=== PATIENT | male | born 1980 | race Caucasian/White ===

== ENCOUNTER 2018-04-18 14:47 | Inpatient (IN) | payer OTHER ==
[~2018-04-18] VITALS: Ht 177.8 cm; Wt 72.1 kg
[2018-04-18] VITALS (11 sets, daily range): BP systolic 93–150; BP diastolic 58–92
[2018-04-18 15:09] LABS: BASO # 0.1 x10^3/uL (0.0-0.2); BASO % 1 % (0-3); EOS % 0 % (0-3); HEMATOCRIT 41.2 % (39.0-53.0); HEMOGLOBIN 14.5 g/dL (13.0-17.5); LYMPH # 2.1 x10^3/uL (1.0-4.8); LYMPH % 24 % (24-48); MEAN CORPUSCULAR HEMOGLOBIN 32 pg (25-35); MEAN CORPUSCULAR HGB CONC 35 g/dL (31-37); MEAN CORPUSCULAR VOLUME 90 fL (79-100); MONO # 0.5 x10^3/uL (0.0-1.1); MONO % 5 % (0-9); NEUT # 6.2 x10^3uL (1.8-7.7); NEUT % 70 % (31-73); PLATELET COUNT 159 x10^3/uL (140-400); RED BLOOD COUNT 4.56 x10^6/uL (4.30-5.70); RED CELL DISTRIBUTION WIDTH 13.2 % (11.5-14.5); WHITE BLOOD COUNT 8.9 x10^3/uL (4.0-11.0)
[2018-04-18 15:17] LABS: PROTHROMBIN TIME PATIENT 14.2 SEC (11.7-14.0)
[2018-04-18 15:29] LABS: ANION GAP 7 (6-14); BLOOD UREA NITROGEN 10 mg/dL (8-26); CALCIUM 8.6 mg/dL (8.5-10.1); CARBAM 6.1 mcg/mL (4.0-12.0); CARBON DIOXIDE 29 mmol/L (21-32); CHLORIDE 106 mmol/L (98-107); CREATININE 0.9 mg/dL (0.7-1.3); GFR 94.4; GLUCOSE 119 mg/dL (70-99); PHENY 0.5 mcg/mL (10.0-20.0); SODIUM 142 mmol/L (136-145)
--- NOTE | 2018-04-18 15:43 | RAD ---
PQRS Compliance Statement: One or more of the following individualized dose reduction techniques were utilized for this examination: 1. Automated exposure control 2. Adjustment of the mA and/or kV according to patient size 3. Use of iterative reconstruction technique CT HEAD AND CERVICAL SPINE WITHOUT CONTRAST History: FALL, AMS Comparison: None. Procedure: Axial images are obtained of the head from the skull base through the vertex without IV contrast. Noncontrast helical CT of the cervical spine was performed. Axial, sagittal, and coronal reconstructions were obtained. Findings: Small right temporal lobe subdural hematoma measures 5 mm in diameter. There is left cerebral hemisphere subarachnoid hemorrhage. Hemorrhage is seen along the sylvian fissure, images 12 and 13. Scattered subarachnoid hemorrhage extends to near the convexity. There is left cerebral hemisphere sulcal effacement. There is no loss of lal-white matter differentiation. Bone windows demonstrate no significant calvarial abnormality. The visualized paranasal sinuses are clear. Mastoid air cells are well aerated. There is no evidence of acute fracture or acute malalignment of the cervical spine. No perched or jumped facets. There is mild degenerative endplate spurring. No significant disc space narrowing. Craniovertebral junction is maintained. No significant narrowing of the central canal. Visualized soft tissues of the neck demonstrate no significant abnormalities. The visualized lung apices are clear. IMPRESSION: 1. Acute left cerebral hemisphere subarachnoid hemorrhage. 2. Small right temporal lobe acute subdural hematoma. 3. No acute fracture of the cervical spine. Findings discussed with CARMINA BASS in the ED at 04/18/2018 3:39 PM. FOR INTERNAL CODING PURPOSES Critical result: RESULT CODE: (C) Electronically signed by: Mehdi Marie MD (04/18/2018 3:40 PM) [id number]
[2018-04-18 15:58] LABS: BILIRUBIN,URINE NEGATIVE (NEG); CLARITY,URINE CLEAR; COLOR,URINE YELLOW; NITRITE,URINE NEGATIVE (NEG); PH,URINE 8.5; PROTEIN,URINE NEGATIVE (NEG-TRACE); UROBILINOGEN,URINE 0.2 mg/dL (0.2 mg/dL)
[2018-04-18 16:05] LABS: BARBITURATES NEG (NEG); BENZODIAZEPINES NEG (NEG); CANNABINOIDS NEG (NEG); COCAINE NEG (NEG); METHADONE NEG (NEG); OPIATES NEG (NEG); PHENCYCLIDINE NEG (NEG)
[2018-04-18 16:15] LABS: BACTERIA,URINE 0 /HPF (0-FEW); RBC,URINE 0 /HPF (0-2); WBC,URINE 0 /HPF (0-4)
[2018-04-18] MEDS ORDERED: levETIRAcetam 1,000 MG in IV DEXTROSE 5% 100ML 100 ML IV ONE (16:15)
[2018-04-18] MEDS ORDERED: IV RINGERS,LACTATED 1000ML 1,000 ML IV ONE (16:15)
[2018-04-18] MEDS ORDERED: ONDANSETRON PF 4 MG/2 ML VIAL. IM ONE (16:15)
[2018-04-18] MEDS ORDERED: ONDANSETRON PF 4 MG/2 ML VIAL. IV PRN (16:15)
[2018-04-18 16:16] LABS: AMPHETAMINE/METHAMPHETAMINE NEG (NEG)
--- NOTE | 2018-04-18 16:22 | PDOC1 ---
History and Physical Date of Admission Date of Admission DATE: 04/18/18 TIME: 16:22 Identification/Chief Complaint Chief Complaint SEEN IN er inmate at [facility]. was in the courtyard portion of that facility when he was witnessed to have what is described to be a mechanical fall striking his head on a wall. guards some possible seizure activity immediately after the incident. EMS was called because the patient remained confused and unable to communicate at baseline.,does have a prior history of seizures Past Medical History Past Medical History Past Medical History: Seizure, Unknown Past Surgical History: Other Additional Past Surgical Histo: UNKNOWN SURGICAL HISTORY DUE TO PTS MENTAL STATUS Alcohol Use: None Drug Use: None KNOWN Social History Narrative: UNKNOWN ALCOHOL AND DRUG USE UNKNOWN FHX Heme/Onc: No pertinent hx Dermatology: No pertinent hx Family History Family History: Family History Unknown Social History Smoke: No ALCOHOL: none Drugs: None Current Medications Current Medications Current Medications Ringer's Solution 1,000 ml @ 75 mls/hr 1X ONCE IV ; Start 04/18/18 at 16:15; Stop 04/19/18 at 05:34 Levetiracetam 1000 mg/Dextrose 110 ml @ 440 mls/hr 1X ONCE IV ; Start at 16:15; Stop 04/18/18 at 16:29 Ondansetron HCl (Zofran) 8 mg 1X ONCE IM ; Start 04/18/18 at 16:15; Stop at 16:16; Status DC Ondansetron HCl (Zofran) 4 mg PRN Q8HRS PRN IV NAUSEA/VOMITING; Start at 16:15; Stop 04/19/18 at 16:14 Fentanyl Citrate (Fentanyl 2ml Vial) 50 mcg PRN Q1HR PRN IV PAIN; Start at 16:15; Stop 04/19/18 at 16:14 Ondansetron HCl (Zofran) 8 mg 1X ONCE IV Last administered on 04/18/18at 16:00 ; Start 04/18/18 at 16:30; Stop 04/18/18 at 16:31; Status UNV Allergies Allergies: Coded Allergies: Unable to Assess (Unverified , 04/18/18) ROS Review of System Review of Systems Review of Systems No ROS available from this patient due to altered mentation 14 pt systems were reviewed and found to be within normal limits, except as documented General: YES: Night Sweats PSYCHOLOGICAL ROS: YES: Disorientation Eyes: Yes Blurry vision, Yes Decreased vision Hematological and Lymphatic: No: Bleeding Problems, Blood Clots, Blood Transfusions, Brusing, Night Sweats, Pallor, Swollen Lymph Nodes, Other Respiratory: No: Cough, Hemoptysis, Orthopnea, Pleuritic Pain, Shortness of breath, SOB with excertion, Sputum Changes, Stridor, Tachypnea, Wheezing, Other Cardiovascular: No Chest Pain, No Palpitations, No Orthopnea, No Paroxysmal Noc. Dyspnea, No Edema, No Lt Headedness, No Other Gastrointestinal: No Nausea, No Vomiting, No Abdominal Pain, No Diarrhea, No Constipation, No Melena, No Hematochezia, No Other Neurological: Yes Confusion, Yes Gait Disturbance Physical Exam General: moderate distress HEENT: EOMI Lungs: Clear to auscultation, Normal air movement Abdomen: Soft Neuro: Cranial nerves 3-12 NL Vitals Vitals Vital Signs Date Time Temp Pulse Resp B/P (MAP) Pulse Ox O2 Delivery O2 Flow Rate FiO2 04/18/18 15:27 Room Air 04/18/18 14:47 98.8 73 20 131/90 (104) 100 98.8 Labs Labs Laboratory Tests Test 04/18/18 15:00 04/18/18 15:36 White Blood Count 8.9 x10^3/uL (4.0-11.0) Red Blood Count 4.56 x10^6/uL (4.30-5.70) Hemoglobin 14.5 g/dL (13.0-17.5) Hematocrit 41.2 % (39.0-53.0) Mean Corpuscular Volume 90 fL (79-100) Mean Corpuscular Hemoglobin 32 pg (25-35) Mean Corpuscular Hemoglobin Concent 35 g/dL (31-37) Red Cell Distribution Width 13.2 % (11.5-14.5) Platelet Count 159 x10^3/uL (140-400) Neutrophils (%) (Auto) 70 % (31-73) Lymphocytes (%) (Auto) 24 % (24-48) Monocytes (%) (Auto) 5 % (0-9) Eosinophils (%) (Auto) 0 % (0-3) Basophils (%) (Auto) 1 % (0-3) Neutrophils # (Auto) 6.2 x10^3uL (1.8-7.7) Lymphocytes # (Auto) 2.1 x10^3/uL (1.0-4.8) Monocytes # (Auto) 0.5 x10^3/uL (0.0-1.1) Eosinophils # (Auto) 0.0 x10^3/uL (0.0-0.7) Basophils # (Auto) 0.1 x10^3/uL (0.0-0.2) Prothrombin Time 14.2 SEC (11.7-14.0) Prothromb Time International Ratio 1.2 (0.8-1.1) Activated Partial Thromboplast Time 23 SEC (24-38) Sodium Level 142 mmol/L (136-145) Potassium Level 4.0 mmol/L (3.5-5.1) Chloride Level 106 mmol/L (98-107) Carbon Dioxide Level 29 mmol/L (21-32) Anion Gap 7 (6-14) Blood Urea Nitrogen 10 mg/dL (8-26) Creatinine 0.9 mg/dL (0.7-1.3) Estimated GFR (Cockcroft-Gault) 94.4 Glucose Level 119 mg/dL (70-99) Calcium Level 8.6 mg/dL (8.5-10.1) Phenytoin (Dilantin) Level 0.5 mcg/mL (10.0-20.0) Phenytoin Last Dose Date 04/18/18 Phenytoin Last Dose Time 0700 Carbamazepine (Tegretol) Level 6.1 mcg/mL (4.0-12.0) Carbamazepine Last Dose Date 04/18/18 Carbamazepine Last Dose Time 0700 Ethyl Alcohol Level < 10 mg/dL (0-10) Urine Collection Type Unknown Urine Color Yellow Urine Clarity Clear Urine pH 8.5 Urine Specific [place] 1.015 Urine Protein Negative mg/dL (NEG-TRACE) Urine Glucose (UA) Negative mg/dL (NEG) Urine Ketones (Stick) Negative mg/dL (NEG) Urine Blood Negative (NEG) Urine Nitrite Negative (NEG) Urine Bilirubin Negative (NEG) Urine Urobilinogen Dipstick 0.2 mg/dL (0.2 mg/dL) Urine Leukocyte Esterase Negative (NEG) Urine RBC 0 /HPF (0-2) Urine WBC 0 /HPF (0-4) Urine Bacteria 0 /HPF (0-FEW) Urine Opiates Screen Neg (NEG) Urine Methadone Screen Neg (NEG) Urine Barbiturates Neg (NEG) Urine Phencyclidine Screen Neg (NEG) Urine Amphetamine/Methamphetamine Neg (NEG) Urine Benzodiazepines Screen Neg (NEG) Urine Cocaine Screen Neg (NEG) Urine Cannabinoids Screen Neg (NEG) Urine Ethyl Alcohol Neg (NEG) Laboratory Tests Test 04/18/18 15:00 04/18/18 15:36 White Blood Count 8.9 x10^3/uL (4.0-11.0) Red Blood Count 4.56 x10^6/uL (4.30-5.70) Hemoglobin 14.5 g/dL (13.0-17.5) Hematocrit 41.2 % (39.0-53.0) Mean Corpuscular Volume 90 fL (79-100) Mean Corpuscular Hemoglobin 32 pg (25-35) Mean Corpuscular Hemoglobin Concent 35 g/dL (31-37) Red Cell Distribution Width 13.2 % (11.5-14.5) Platelet Count 159 x10^3/uL (140-400) Neutrophils (%) (Auto) 70 % (31-73) Lymphocytes (%) (Auto) 24 % (24-48) Monocytes (%) (Auto) 5 % (0-9) Eosinophils (%) (Auto) 0 % (0-3) Basophils (%) (Auto) 1 % (0-3) Neutrophils # (Auto) 6.2 x10^3uL (1.8-7.7) Lymphocytes # (Auto) 2.1 x10^3/uL (1.0-4.8) Monocytes # (Auto) 0.5 x10^3/uL (0.0-1.1) Eosinophils # (Auto) 0.0 x10^3/uL (0.0-0.7) Basophils # (Auto) 0.1 x10^3/uL (0.0-0.2) Prothrombin Time 14.2 SEC (11.7-14.0) Prothromb Time International Ratio 1.2 (0.8-1.1) Activated Partial Thromboplast Time 23 SEC (24-38) Sodium Level 142 mmol/L (136-145) Potassium Level 4.0 mmol/L (3.5-5.1) Chloride Level 106 mmol/L (98-107) Carbon Dioxide Level 29 mmol/L (21-32) Anion Gap 7 (6-14) Blood Urea Nitrogen 10 mg/dL (8-26) Creatinine 0.9 mg/dL (0.7-1.3) Estimated GFR (Cockcroft-Gault) 94.4 Glucose Level 119 mg/dL (70-99) Calcium Level 8.6 mg/dL (8.5-10.1) Phenytoin (Dilantin) Level 0.5 mcg/mL (10.0-20.0) Phenytoin Last Dose Date 04/18/18 Phenytoin Last Dose Time 0700 Carbamazepine (Tegretol) Level 6.1 mcg/mL (4.0-12.0) Carbamazepine Last Dose Date 04/18/18 Carbamazepine Last Dose Time 0700 Ethyl Alcohol Level < 10 mg/dL (0-10) Urine Collection Type Unknown Urine Color Yellow Urine Clarity Clear Urine pH 8.5 Urine Specific [place] 1.015 Urine Protein Negative mg/dL (NEG-TRACE) Urine Glucose (UA) Negative mg/dL (NEG) Urine Ketones (Stick) Negative mg/dL (NEG) Urine Blood Negative (NEG) Urine Nitrite Negative (NEG) Urine Bilirubin Negative (NEG) Urine Urobilinogen Dipstick 0.2 mg/dL (0.2 mg/dL) Urine Leukocyte Esterase Negative (NEG) Urine RBC 0 /HPF (0-2) Urine WBC 0 /HPF (0-4) Urine Bacteria 0 /HPF (0-FEW) Urine Opiates Screen Neg (NEG) Urine Methadone Screen Neg (NEG) Urine Barbiturates Neg (NEG) Urine Phencyclidine Screen Neg (NEG) Urine Amphetamine/Methamphetamine Neg (NEG) Urine Benzodiazepines Screen Neg (NEG) Urine Cocaine Screen Neg (NEG) Urine Cannabinoids Screen Neg (NEG) Urine Ethyl Alcohol Neg (NEG) VTE Prophylaxis Ordered VTE Prophylaxis Devices: Yes VTE Pharmacological Prophylaxi: Contraindicated Assessment/Plan Assessment/Plan IMPRESSION possible seizure activity, witnessed by care home guards CT head c/w Acute left cerebral hemisphere subarachnoid hemorrhage, right temporal lobe acute subdural hematoma mental status change sec to [facility] hx seizure disorder PLAN ICU with neuro checks neurology consult AM LABS SERIAL CT HEAD SEIZURE PRECAUTIONS iv keppra 38 min cc time YUN PERSAUD MD Apr 18, 2018 16:22
[2018-04-18] MEDS ORDERED: ONDANSETRON PF 4 MG/2 ML VIAL. IV ONE (16:30)
--- NOTE | 2018-04-18 17:29 | PDOC ---
Provider Note Provider Note patient seen and examined in ED Witnessed fall, possible seizure activity CT head with Acute left cerebral hemisphere subarachnoid hemorrhage, Small right temporal lobe acute subdural hematoma. JOHNSON, follows commands, confused but answers simple questions ICU with neuro checks neurology consult repeat CT head in AM full consult to follow EDEL BOLTON MD Apr 18, 2018 17:29
--- NOTE | 2018-04-18 17:45 | PHYS DOC ---
Past Medical History Past Medical History: Seizure, Unknown Past Surgical History: Other Additional Past Surgical Histo: UNKNOWN SURGICAL HISTORY DUE TO PTS MENTAL STATUS Alcohol Use: None Drug Use: None Social History Narrative: UNKNOWN ALCOHOL AND DRUG USE Adult General Chief Complaint Chief Complaint: TRAUMA ALERT HPI HPI Patient is a 38 year old male who presents with head injury. The patient is an inmate at [facility]. He was in the courtyard portion of that facility when he was witnessed to have what is described to be a mechanical fall striking his head on a wall. The patient was also reported to have some possible seizure activity immediately after the incident. EMS was called because the patient remained confused and unable to communicate at baseline. The patient does have a prior history of seizures. He is uncertain what medication he takes. There is no meaningful history available directly from the patient because he does have some decline in mental status. Review of Systems Review of Systems No ROS available from this patient due to altered mentation All other systems were reviewed and found to be within normal limits, except as documented in this note. Allergies Allergies Allergies Coded Allergies Type Severity Reaction Last Updated Verified Unable to Assess 04/18/18 No Physical Exam Physical Exam Constitutional: Well developed, well nourished, no acute distress, non-toxic appearance HENT: Normocephalic, small hematoma over occipital scalp, otherwise no trauma seen, bilateral external ears normal, oropharynx moist, Eyes: PERRLA, EOMI Neck: c-collar in place Cardiovascular:Heart rate regular rhythm, no murmur Lungs & Thorax: Bilateral breath sounds clear to auscultation Abdomen: Bowel sounds normal, soft, no tenderness Skin: Warm, dry, no erythema Back: No tenderness Extremities: No tenderness, no trauma Neurologic: Alert but cannot answer orientation questions. Moves all extremities, no facial asymmetry, protecting airway, moves all extremities 5/5 Current Patient Data Vital Signs Vital Signs Date Time Temp Pulse Resp B/P (MAP) Pulse Ox O2 Delivery O2 Flow Rate FiO2 04/18/18 15:55 78 18 129/85 (100) 100 Room Air 04/18/18 14:47 98.8 98.8 Lab Values Laboratory Tests Test 04/18/18 15:00 04/18/18 15:36 White Blood Count 8.9 x10^3/uL (4.0-11.0) Red Blood Count 4.56 x10^6/uL (4.30-5.70) Hemoglobin 14.5 g/dL (13.0-17.5) Hematocrit 41.2 % (39.0-53.0) Mean Corpuscular Volume 90 fL (79-100) Mean Corpuscular Hemoglobin 32 pg (25-35) Mean Corpuscular Hemoglobin Concent 35 g/dL (31-37) Red Cell Distribution Width 13.2 % (11.5-14.5) Platelet Count 159 x10^3/uL (140-400) Neutrophils (%) (Auto) 70 % (31-73) Lymphocytes (%) (Auto) 24 % (24-48) Monocytes (%) (Auto) 5 % (0-9) Eosinophils (%) (Auto) 0 % (0-3) Basophils (%) (Auto) 1 % (0-3) Neutrophils # (Auto) 6.2 x10^3uL (1.8-7.7) Lymphocytes # (Auto) 2.1 x10^3/uL (1.0-4.8) Monocytes # (Auto) 0.5 x10^3/uL (0.0-1.1) Eosinophils # (Auto) 0.0 x10^3/uL (0.0-0.7) Basophils # (Auto) 0.1 x10^3/uL (0.0-0.2) Prothrombin Time 14.2 SEC (11.7-14.0) H Prothrombin Time INR 1.2 (0.8-1.1) H PTT 23 SEC (24-38) L Sodium Level 142 mmol/L (136-145) Potassium Level 4.0 mmol/L (3.5-5.1) Chloride Level 106 mmol/L (98-107) Carbon Dioxide Level 29 mmol/L (21-32) Anion Gap 7 (6-14) Blood Urea Nitrogen 10 mg/dL (8-26) Creatinine 0.9 mg/dL (0.7-1.3) Estimated GFR (Cockcroft-Gault) 94.4 Glucose Level 119 mg/dL (70-99) H Calcium Level 8.6 mg/dL (8.5-10.1) Phenytoin (Dilantin) Level 0.5 mcg/mL (10.0-20.0) L Phenytoin Last Dose Date 04/18/18 Phenytoin Last Dose Time 0700 Carbamazepine (Tegretol) Level 6.1 mcg/mL (4.0-12.0) Carbamazepine Last Dose Date 04/18/18 Carbamazepine Last Dose Time 0700 Ethyl Alcohol Level < 10 mg/dL (0-10) Urine Collection Type Unknown Urine Color Yellow Urine Clarity Clear Urine pH 8.5 Urine Specific [place] 1.015 Urine Protein Negative mg/dL (NEG-TRACE) Urine Glucose (UA) Negative mg/dL (NEG) Urine Ketones (Stick) Negative mg/dL (NEG) Urine Blood Negative (NEG) Urine Nitrite Negative (NEG) Urine Bilirubin Negative (NEG) Urine Urobilinogen Dipstick 0.2 mg/dL (0.2 mg/dL) Urine Leukocyte Esterase Negative (NEG) Urine RBC 0 /HPF (0-2) Urine WBC 0 /HPF (0-4) Urine Bacteria 0 /HPF (0-FEW) Urine Opiates Screen Neg (NEG) Urine Methadone Screen Neg (NEG) Urine Barbiturates Neg (NEG) Urine Phencyclidine Screen Neg (NEG) Urine Amphetamine/Methamphetamine Neg (NEG) Urine Benzodiazepines Screen Neg (NEG) Urine Cocaine Screen Neg (NEG) Urine Cannabinoids Screen Neg (NEG) Urine Ethyl Alcohol Neg (NEG) Laboratory Tests 04/18/18 15:00 Laboratory Tests 04/18/18 15:00 EKG EKG [] Radiology/Procedures Radiology/Procedures Findings: Small right temporal lobe subdural hematoma measures 5 mm in diameter. There is left cerebral hemisphere subarachnoid hemorrhage. Hemorrhage is seen along the sylvian fissure, images 12 and 13. Scattered subarachnoid hemorrhage extends to near the convexity. There is left cerebral hemisphere sulcal effacement. There is no loss of lla-white matter differentiation. Bone windows demonstrate no significant calvarial abnormality. The visualized paranasal sinuses are clear. Mastoid air cells are well aerated. There is no evidence of acute fracture or acute malalignment of the cervical spine. No perched or jumped facets. There is mild degenerative endplate spurring. No significant disc space narrowing. Craniovertebral junction is maintained. No significant narrowing of the central canal. Visualized soft tissues of the neck demonstrate no significant abnormalities. The visualized lung apices are clear. IMPRESSION: 1. Acute left cerebral hemisphere subarachnoid hemorrhage. 2. Small right temporal lobe acute subdural hematoma. 3. No acute fracture of the cervical spine. Course & Med Decision Making Course & Med Decision Making Pertinent Labs and Imaging studies reviewed. (See chart for details) Patient was evaluated in the emergency department for head injury from a fall from a standing position. He had altered mental status. He does have a questionable prior history of seizure disorder. In the emergency department, he was stable and confused and had some difficulty with speech but his neurologic exam was otherwise nonfocal. He did not have any seizure. He did have one episode of large-volume emesis which appeared to be food and no blood. He was given a Keppra load the thousand milligrams IV. I consulted with Dr. De León, neurosurgery concierge, who did come and evaluate the patient. Plan was to admit the patient to the ICU and repeat CT scan in the morning. Bridge orders are placed. I spoke to Dr. Dallas who will primarily admit the patient. Dragon Disclaimer Dragon Disclaimer This electronic medical record was generated, in whole or in part, using a voice recognition dictation system. Departure Departure Referrals: UNKNOWN PCP NAME (PCP) CARMINA BASS DO Apr 18, 2018 17:45
[2018-04-18] MEDS: PROCHLORPERAZINE 10 MG/2 ML VIAL. IV PRN (19:42)
[2018-04-18] MEDS: levETIRAcetam 500 MG in IV DEXTROSE 5% 100ML 100 ML IV SCH (19:43)
[2018-04-18] MEDS: fentaNYL PF VIAL 100 MCG/2 ML VIAL IV PRN (19:43)
[2018-04-19] VITALS (14 sets, daily range): BP systolic 63–124; BP diastolic 58–78
[2018-04-19] MEDS: fentaNYL PF VIAL 100 MCG/2 ML VIAL IV PRN ×5 (00:04→23:17)
[2018-04-19] MEDS: PROCHLORPERAZINE 10 MG/2 ML VIAL. IV PRN ×3 (00:04→08:39)
[2018-04-19] MEDS ORDERED: CARB200T PO (00:31)
[2018-04-19] MEDS ORDERED: DOCU-109 PO (00:31)
[2018-04-19] MEDS ORDERED: PARO40TA61 PO (00:31)
[2018-04-19] MEDS: IV NORMAL SALINE 1000ML BAG 1,000 ML IV SCH ×3 (07:41→21:27)
[2018-04-19 08:02] LABS: BASO % 0 % (0-3); CALCIUM 8.2 mg/dL (8.5-10.1); CREATININE 0.8 mg/dL (0.7-1.3); EOS % 0 % (0-3); GFR 108.2; HEMATOCRIT 38.5 % (39.0-53.0); HEMOGLOBIN 13.5 g/dL (13.0-17.5); LYMPH % 15 % (24-48); MEAN CORPUSCULAR HEMOGLOBIN 32 pg (25-35); MEAN CORPUSCULAR HGB CONC 35 g/dL (31-37); MEAN CORPUSCULAR VOLUME 92 fL (79-100); MONO # 1.4 x10^3/uL (0.0-1.1); MONO % 11 % (0-9); NEUT # 9.8 x10^3uL (1.8-7.7); NEUT % 74 % (31-73); PLATELET COUNT 152 x10^3/uL (140-400); POTASSIUM 3.8 mmol/L (3.5-5.1); RED BLOOD COUNT 4.19 x10^6/uL (4.30-5.70); RED CELL DISTRIBUTION WIDTH 13.6 % (11.5-14.5); WHITE BLOOD COUNT 13.2 x10^3/uL (4.0-11.0)
[2018-04-19] MEDS: levETIRAcetam 500 MG in IV DEXTROSE 5% 100ML 100 ML IV SCH ×2 (08:37→21:27)
--- NOTE | 2018-04-19 10:50 | PDOC2 ---
NEUROLOGY CONSULT Date of Admission Date of Admission DATE: 04/19/18 TIME: 10:44 Reason for Consult Reason for Consult: Traumatic brain injury, epilepsy, cerebral hemorrhage Referring Physician Referring Physician: Dr. Dallas Source Source: Chart review, Patient History of Present Illness History of Present Illness The patient is a 38-year-old right-handed male with a history of head injuries and epilepsy for which he takes carbamate team. He had a mechanical fall in the courtyard of the senior living and struck his head. He was knocked out and had some brief convulsive activity. He has abnormal CT head as reviewed below. He has a mild headache this morning. He still feels dizzy. Past Medical History CENTRAL NERVOUS SYSTEM: Dementia (Intellectual disability), Seizure Psych: Other ( post traumatic stress disorder, personality disorder) Past Surgical History Past Surgical History: No pertinent history Family History Family History: Other ( negative for seizures) Social History Social History Prisoner, remote history of alcohol and tobacco use Current Medications Current Medications Current Medications Ringer's Solution 1,000 ml @ 75 mls/hr 1X ONCE IV Last administered on at 16:43; Start 04/18/18 at 16:15; Stop 04/19/18 at 05:34; Status DC Levetiracetam 1000 mg/Dextrose 110 ml @ 440 mls/hr 1X ONCE IV Last administered on 04/18/18at 16:43; Start 04/18/18 at 16:15; Stop 04/18/18 at 16 :29; Status DC Ondansetron HCl (Zofran) 8 mg 1X ONCE IM ; Start 04/18/18 at 16:15; Stop at 16:16; Status DC Ondansetron HCl (Zofran) 4 mg PRN Q8HRS PRN IV NAUSEA/VOMITING; Start at 16:15; Stop 04/18/18 at 19:11; Status DC Fentanyl Citrate (Fentanyl 2ml Vial) 50 mcg PRN Q1HR PRN IV PAIN Last administered on 04/19/18at 08:33; Start 04/18/18 at 16:15; Stop 04/19/18 at 16 :14 Ondansetron HCl (Zofran) 8 mg 1X ONCE IV Last administered on 04/18/18at 16:00 ; Start 04/18/18 at 16:30; Stop 04/18/18 at 16:31; Status DC Levetiracetam 500 mg/Dextrose 105 ml @ 420 mls/hr Q12HR IV Last administered on 04/19/18at 08:37; Start 04/18/18 at 19:00 Prochlorperazine Edisylate (Compazine) 5 mg PRN Q4HRS PRN IV NAUSEA/VOMITING Last administered on 04/19/18at 08:39; Start 04/18/18 at 19:15 Sodium Chloride 1,000 ml @ 80 mls/hr [id number] IV Last administered on at 07:41; Start 04/18/18 at 21:00 Active Scripts Active Reported Paxil (Paroxetine Hcl) 40 Mg Tablet 40 Mg PO HS Colace (Docusate Sodium) 100 Mg Capsule 100 Mg PO BID Tegretol (Carbamazepine) 200 Mg Tablet 200 Mg PO BID Allergies Allergies: Coded Allergies: imipramine (Verified Allergy, Mild, 04/19/18) ROS Review of System Negative for fevers, chills, weight loss, shortness of breath, chest pain, indigestion, hematochezia, melena, dysuria. Full 14-point review systems is negative. Physical Exam Physical Examination General: Well-developed, well-nourished male in no acute distress HEENT: Normocephalic, Scalp hematoma. Temporal arteriespulsatile and nontender. Neck: Supple without bruit, no meningismus Musculoskeletal: Stability:see neurologic. Gait exam:see neurologic. Tone:see neurologic. Strength:see neurologic. Neurological: Mental Status:intact, orientation, memory, attention span/concentration, language, fund of knowledge normal. Cranial Nerves:Pupils equal and reactive to light, extraocular movements areintact, visual trujillo are full to confrontation. Facial sensation is normal. There is no facial asymmetry. Vestibulo-ocular reflex is intact. Palate elvates and tongue protrudes in midline. All other cranial related problems are negative except as mentioned before.Reflexes:2+ and symmetric with flexor plantar responses. Motor: 4/5, weaker on the left, with normal tone and bulk. Coordination:Finger-nose finger and [id number] testing are normal. Rapid alternating movements and fine finger movements are intact. Gait: not tested. Sensory:Normal pinprick, vibration, light touch, proprioception. Vitals VITALS Vital Signs Date Time Temp Pulse Resp B/P (MAP) Pulse Ox O2 Delivery O2 Flow Rate FiO2 04/19/18 09:00 Room Air 04/19/18 08:40 64 63/ 96 04/19/18 08:33 16 04/19/18 07:42 98.2 98.2 04/19/18 03:00 4.0 Labs Labs Laboratory Tests Test 04/18/18 15:00 04/18/18 15:36 04/19/18 07:10 White Blood Count 8.9 x10^3/uL (4.0-11.0) 13.2 x10^3/uL (4.0-11.0) Red Blood Count 4.56 x10^6/uL (4.30-5.70) 4.19 x10^6/uL (4.30-5.70) Hemoglobin 14.5 g/dL (13.0-17.5) 13.5 g/dL (13.0-17.5) Hematocrit 41.2 % (39.0-53.0) 38.5 % (39.0-53.0) Mean Corpuscular Volume 90 fL (79-100) 92 fL (79-100) Mean Corpuscular Hemoglobin 32 pg (25-35) 32 pg (25-35) Mean Corpuscular Hemoglobin Concent 35 g/dL (31-37) 35 g/dL (31-37) Red Cell Distribution Width 13.2 % (11.5-14.5) 13.6 % (11.5-14.5) Platelet Count 159 x10^3/uL (140-400) 152 x10^3/uL (140-400) Neutrophils (%) (Auto) 70 % (31-73) 74 % (31-73) Lymphocytes (%) (Auto) 24 % (24-48) 15 % (24-48) Monocytes (%) (Auto) 5 % (0-9) 11 % (0-9) Eosinophils (%) (Auto) 0 % (0-3) 0 % (0-3) Basophils (%) (Auto) 1 % (0-3) 0 % (0-3) Neutrophils # (Auto) 6.2 x10^3uL (1.8-7.7) 9.8 x10^3uL (1.8-7.7) Lymphocytes # (Auto) 2.1 x10^3/uL (1.0-4.8) 2.0 x10^3/uL (1.0-4.8) Monocytes # (Auto) 0.5 x10^3/uL (0.0-1.1) 1.4 x10^3/uL (0.0-1.1) Eosinophils # (Auto) 0.0 x10^3/uL (0.0-0.7) 0.0 x10^3/uL (0.0-0.7) Basophils # (Auto) 0.1 x10^3/uL (0.0-0.2) 0.0 x10^3/uL (0.0-0.2) Prothrombin Time 14.2 SEC (11.7-14.0) Prothromb Time International Ratio 1.2 (0.8-1.1) Activated Partial Thromboplast Time 23 SEC (24-38) Sodium Level 142 mmol/L (136-145) 140 mmol/L (136-145) Potassium Level 4.0 mmol/L (3.5-5.1) 3.8 mmol/L (3.5-5.1) Chloride Level 106 mmol/L (98-107) 105 mmol/L (98-107) Carbon Dioxide Level 29 mmol/L (21-32) 29 mmol/L (21-32) Anion Gap 7 (6-14) 6 (6-14) Blood Urea Nitrogen 10 mg/dL (8-26) 10 mg/dL (8-26) Creatinine 0.9 mg/dL (0.7-1.3) 0.8 mg/dL (0.7-1.3) Estimated GFR (Cockcroft-Gault) 94.4 108.2 Glucose Level 119 mg/dL (70-99) 111 mg/dL (70-99) Calcium Level 8.6 mg/dL (8.5-10.1) 8.2 mg/dL (8.5-10.1) Phenytoin (Dilantin) Level 0.5 mcg/mL (10.0-20.0) Phenytoin Last Dose Date 04/18/18 Phenytoin Last Dose Time 0700 Carbamazepine (Tegretol) Level 6.1 mcg/mL (4.0-12.0) Carbamazepine Last Dose Date 04/18/18 Carbamazepine Last Dose Time 0700 Ethyl Alcohol Level < 10 mg/dL (0-10) Urine Collection Type Unknown Urine Color Yellow Urine Clarity Clear Urine pH 8.5 Urine Specific [place] 1.015 Urine Protein Negative mg/dL (NEG-TRACE) Urine Glucose (UA) Negative mg/dL (NEG) Urine Ketones (Stick) Negative mg/dL (NEG) Urine Blood Negative (NEG) Urine Nitrite Negative (NEG) Urine Bilirubin Negative (NEG) Urine Urobilinogen Dipstick 0.2 mg/dL (0.2 mg/dL) Urine Leukocyte Esterase Negative (NEG) Urine RBC 0 /HPF (0-2) Urine WBC 0 /HPF (0-4) Urine Bacteria 0 /HPF (0-FEW) Urine Opiates Screen Neg (NEG) Urine Methadone Screen Neg (NEG) Urine Barbiturates Neg (NEG) Urine Phencyclidine Screen Neg (NEG) Urine Amphetamine/Methamphetamine Neg (NEG) Urine Benzodiazepines Screen Neg (NEG) Urine Cocaine Screen Neg (NEG) Urine Cannabinoids Screen Neg (NEG) Urine Ethyl Alcohol Neg (NEG) Laboratory Tests Test 04/18/18 15:00 04/18/18 15:36 04/19/18 07:10 White Blood Count 8.9 x10^3/uL (4.0-11.0) 13.2 x10^3/uL (4.0-11.0) Red Blood Count 4.56 x10^6/uL (4.30-5.70) 4.19 x10^6/uL (4.30-5.70) Hemoglobin 14.5 g/dL (13.0-17.5) 13.5 g/dL (13.0-17.5) Hematocrit 41.2 % (39.0-53.0) 38.5 % (39.0-53.0) Mean Corpuscular Volume 90 fL (79-100) 92 fL (79-100) Mean Corpuscular Hemoglobin 32 pg (25-35) 32 pg (25-35) Mean Corpuscular Hemoglobin Concent 35 g/dL (31-37) 35 g/dL (31-37) Red Cell Distribution Width 13.2 % (11.5-14.5) 13.6 % (11.5-14.5) Platelet Count 159 x10^3/uL (140-400) 152 x10^3/uL (140-400) Neutrophils (%) (Auto) 70 % (31-73) 74 % (31-73) Lymphocytes (%) (Auto) 24 % (24-48) 15 % (24-48) Monocytes (%) (Auto) 5 % (0-9) 11 % (0-9) Eosinophils (%) (Auto) 0 % (0-3) 0 % (0-3) Basophils (%) (Auto) 1 % (0-3) 0 % (0-3) Neutrophils # (Auto) 6.2 x10^3uL (1.8-7.7) 9.8 x10^3uL (1.8-7.7) Lymphocytes # (Auto) 2.1 x10^3/uL (1.0-4.8) 2.0 x10^3/uL (1.0-4.8) Monocytes # (Auto) 0.5 x10^3/uL (0.0-1.1) 1.4 x10^3/uL (0.0-1.1) Eosinophils # (Auto) 0.0 x10^3/uL (0.0-0.7) 0.0 x10^3/uL (0.0-0.7) Basophils # (Auto) 0.1 x10^3/uL (0.0-0.2) 0.0 x10^3/uL (0.0-0.2) Prothrombin Time 14.2 SEC (11.7-14.0) Prothromb Time International Ratio 1.2 (0.8-1.1) Activated Partial Thromboplast Time 23 SEC (24-38) Sodium Level 142 mmol/L (136-145) 140 mmol/L (136-145) Potassium Level 4.0 mmol/L (3.5-5.1) 3.8 mmol/L (3.5-5.1) Chloride Level 106 mmol/L (98-107) 105 mmol/L (98-107) Carbon Dioxide Level 29 mmol/L (21-32) 29 mmol/L (21-32) Anion Gap 7 (6-14) 6 (6-14) Blood Urea Nitrogen 10 mg/dL (8-26) 10 mg/dL (8-26) Creatinine 0.9 mg/dL (0.7-1.3) 0.8 mg/dL (0.7-1.3) Estimated GFR (Cockcroft-Gault) 94.4 108.2 Glucose Level 119 mg/dL (70-99) 111 mg/dL (70-99) Calcium Level 8.6 mg/dL (8.5-10.1) 8.2 mg/dL (8.5-10.1) Phenytoin (Dilantin) Level 0.5 mcg/mL (10.0-20.0) Phenytoin Last Dose Date 04/18/18 Phenytoin Last Dose Time 0700 Carbamazepine (Tegretol) Level 6.1 mcg/mL (4.0-12.0) Carbamazepine Last Dose Date 04/18/18 Carbamazepine Last Dose Time 0700 Ethyl Alcohol Level < 10 mg/dL (0-10) Urine Collection Type Unknown Urine Color Yellow Urine Clarity Clear Urine pH 8.5 Urine Specific [place] 1.015 Urine Protein Negative mg/dL (NEG-TRACE) Urine Glucose (UA) Negative mg/dL (NEG) Urine Ketones (Stick) Negative mg/dL (NEG) Urine Blood Negative (NEG) Urine Nitrite Negative (NEG) Urine Bilirubin Negative (NEG) Urine Urobilinogen Dipstick 0.2 mg/dL (0.2 mg/dL) Urine Leukocyte Esterase Negative (NEG) Urine RBC 0 /HPF (0-2) Urine WBC 0 /HPF (0-4) Urine Bacteria 0 /HPF (0-FEW) Urine Opiates Screen Neg (NEG) Urine Methadone Screen Neg (NEG) Urine Barbiturates Neg (NEG) Urine Phencyclidine Screen Neg (NEG) Urine Amphetamine/Methamphetamine Neg (NEG) Urine Benzodiazepines Screen Neg (NEG) Urine Cocaine Screen Neg (NEG) Urine Cannabinoids Screen Neg (NEG) Urine Ethyl Alcohol Neg (NEG) Images Images CT head and cervical spine: Small right temporal lobe subdural hematoma measures 5 mm in diameter. There is left cerebral hemisphere subarachnoid hemorrhage. Hemorrhage is seen along the sylvian fissure, images 12 and 13. Scattered subarachnoid hemorrhage extends to near the convexity. There is left cerebral hemisphere sulcal effacement. There is no loss of lal-white matter differentiation. Bone windows demonstrate no significant calvarial abnormality. The visualized paranasal sinuses are clear. Mastoid air cells are well aerated. There is no evidence of acute fracture or acute malalignment of the cervical spine. No perched or jumped facets. There is mild degenerative endplate spurring. No significant disc space narrowing. Craniovertebral junction is maintained. No significant narrowing of the central canal. Visualized soft tissues of the neck demonstrate no significant abnormalities. The visualized lung apices are clear. IMPRESSION: 1. Acute left cerebral hemisphere subarachnoid hemorrhage. 2. Small right temporal lobe acute subdural hematoma. 3. No acute fracture of the cervical spine. Assessment/Plan Assessment/Plan Impression: Mechanical fall with bilateral traumatic cerebral hemorrhages History of epilepsy, did have a brief seizure yesterday Intellectual disability Recommendations: Repeat head CT already scheduled for this afternoon I have started him on IV levetiracetam, we can resume his oral carbamazepine when taking by mouth. Rehabilitation modalities. Thank you for letting me help the patient's care. DAMARIS BAUTISTA MD Apr 19, 2018 10:50
--- NOTE | 2018-04-19 12:55 | PDOC ---
PROGRESS NOTES Chief Complaint Chief Complaint Mechanical fall with bilateral traumatic cerebral hemorrhages History of epilepsy, did have a brief seizure yesterday Intellectual disability Leukocytosis History of Present Illness History of Present Illness Pt seen and examined in ICU Resting in bed in [facility] Discussed with junior architect facility officers at bedside Vitals Vitals Vital Signs Date Time Temp Pulse Resp B/P (MAP) Pulse Ox O2 Delivery O2 Flow Rate FiO2 04/19/18 11:56 98.1 64 12 95/76 (82) 94 Room Air 98.1 04/19/18 03:00 4.0 Physical Exam General: No acute distress, Other (resting) Heart: Regular rate, Normal S1, Normal S2 Lungs: Clear Abdomen: Soft, No tenderness Extremities: No clubbing, No cyanosis Skin: No rashes, No breakdown Labs LABS Laboratory Tests Test 04/18/18 15:00 04/18/18 15:36 04/19/18 07:10 White Blood Count 8.9 x10^3/uL (4.0-11.0) 13.2 x10^3/uL (4.0-11.0) Red Blood Count 4.56 x10^6/uL (4.30-5.70) 4.19 x10^6/uL (4.30-5.70) Hemoglobin 14.5 g/dL (13.0-17.5) 13.5 g/dL (13.0-17.5) Hematocrit 41.2 % (39.0-53.0) 38.5 % (39.0-53.0) Mean Corpuscular Volume 90 fL (79-100) 92 fL (79-100) Mean Corpuscular Hemoglobin 32 pg (25-35) 32 pg (25-35) Mean Corpuscular Hemoglobin Concent 35 g/dL (31-37) 35 g/dL (31-37) Red Cell Distribution Width 13.2 % (11.5-14.5) 13.6 % (11.5-14.5) Platelet Count 159 x10^3/uL (140-400) 152 x10^3/uL (140-400) Neutrophils (%) (Auto) 70 % (31-73) 74 % (31-73) Lymphocytes (%) (Auto) 24 % (24-48) 15 % (24-48) Monocytes (%) (Auto) 5 % (0-9) 11 % (0-9) Eosinophils (%) (Auto) 0 % (0-3) 0 % (0-3) Basophils (%) (Auto) 1 % (0-3) 0 % (0-3) Neutrophils # (Auto) 6.2 x10^3uL (1.8-7.7) 9.8 x10^3uL (1.8-7.7) Lymphocytes # (Auto) 2.1 x10^3/uL (1.0-4.8) 2.0 x10^3/uL (1.0-4.8) Monocytes # (Auto) 0.5 x10^3/uL (0.0-1.1) 1.4 x10^3/uL (0.0-1.1) Eosinophils # (Auto) 0.0 x10^3/uL (0.0-0.7) 0.0 x10^3/uL (0.0-0.7) Basophils # (Auto) 0.1 x10^3/uL (0.0-0.2) 0.0 x10^3/uL (0.0-0.2) Prothrombin Time 14.2 SEC (11.7-14.0) Prothromb Time International Ratio 1.2 (0.8-1.1) Activated Partial Thromboplast Time 23 SEC (24-38) Sodium Level 142 mmol/L (136-145) 140 mmol/L (136-145) Potassium Level 4.0 mmol/L (3.5-5.1) 3.8 mmol/L (3.5-5.1) Chloride Level 106 mmol/L (98-107) 105 mmol/L (98-107) Carbon Dioxide Level 29 mmol/L (21-32) 29 mmol/L (21-32) Anion Gap 7 (6-14) 6 (6-14) Blood Urea Nitrogen 10 mg/dL (8-26) 10 mg/dL (8-26) Creatinine 0.9 mg/dL (0.7-1.3) 0.8 mg/dL (0.7-1.3) Estimated GFR (Cockcroft-Gault) 94.4 108.2 Glucose Level 119 mg/dL (70-99) 111 mg/dL (70-99) Calcium Level 8.6 mg/dL (8.5-10.1) 8.2 mg/dL (8.5-10.1) Phenytoin (Dilantin) Level 0.5 mcg/mL (10.0-20.0) Phenytoin Last Dose Date 04/18/18 Phenytoin Last Dose Time 0700 Carbamazepine (Tegretol) Level 6.1 mcg/mL (4.0-12.0) Carbamazepine Last Dose Date 04/18/18 Carbamazepine Last Dose Time 0700 Ethyl Alcohol Level < 10 mg/dL (0-10) Urine Collection Type Unknown Urine Color Yellow Urine Clarity Clear Urine pH 8.5 Urine Specific [place] 1.015 Urine Protein Negative mg/dL (NEG-TRACE) Urine Glucose (UA) Negative mg/dL (NEG) Urine Ketones (Stick) Negative mg/dL (NEG) Urine Blood Negative (NEG) Urine Nitrite Negative (NEG) Urine Bilirubin Negative (NEG) Urine Urobilinogen Dipstick 0.2 mg/dL (0.2 mg/dL) Urine Leukocyte Esterase Negative (NEG) Urine RBC 0 /HPF (0-2) Urine WBC 0 /HPF (0-4) Urine Bacteria 0 /HPF (0-FEW) Urine Opiates Screen Neg (NEG) Urine Methadone Screen Neg (NEG) Urine Barbiturates Neg (NEG) Urine Phencyclidine Screen Neg (NEG) Urine Amphetamine/Methamphetamine Neg (NEG) Urine Benzodiazepines Screen Neg (NEG) Urine Cocaine Screen Neg (NEG) Urine Cannabinoids Screen Neg (NEG) Urine Ethyl Alcohol Neg (NEG) Review of Systems Review of Systems Pt resting in NAD, unable to obtain. Assessment and Plan Assessmemt and Plan Assessment: Mechanical fall with bilateral traumatic cerebral hemorrhages History of epilepsy, did have a brief seizure yesterday Intellectual disability Leukocytosis Plan: ICU monitoring Monitor labs Repeat head CT per neurosurgery Seizure management per neurology Home meds DVT ppx Comment Review of Relevant I have reviewed the following items laura (where applicable) has been applied. Labs Laboratory Tests Test 04/18/18 15:00 04/18/18 15:36 04/19/18 07:10 White Blood Count 8.9 x10^3/uL (4.0-11.0) 13.2 x10^3/uL (4.0-11.0) Red Blood Count 4.56 x10^6/uL (4.30-5.70) 4.19 x10^6/uL (4.30-5.70) Hemoglobin 14.5 g/dL (13.0-17.5) 13.5 g/dL (13.0-17.5) Hematocrit 41.2 % (39.0-53.0) 38.5 % (39.0-53.0) Mean Corpuscular Volume 90 fL (79-100) 92 fL (79-100) Mean Corpuscular Hemoglobin 32 pg (25-35) 32 pg (25-35) Mean Corpuscular Hemoglobin Concent 35 g/dL (31-37) 35 g/dL (31-37) Red Cell Distribution Width 13.2 % (11.5-14.5) 13.6 % (11.5-14.5) Platelet Count 159 x10^3/uL (140-400) 152 x10^3/uL (140-400) Neutrophils (%) (Auto) 70 % (31-73) 74 % (31-73) Lymphocytes (%) (Auto) 24 % (24-48) 15 % (24-48) Monocytes (%) (Auto) 5 % (0-9) 11 % (0-9) Eosinophils (%) (Auto) 0 % (0-3) 0 % (0-3) Basophils (%) (Auto) 1 % (0-3) 0 % (0-3) Neutrophils # (Auto) 6.2 x10^3uL (1.8-7.7) 9.8 x10^3uL (1.8-7.7) Lymphocytes # (Auto) 2.1 x10^3/uL (1.0-4.8) 2.0 x10^3/uL (1.0-4.8) Monocytes # (Auto) 0.5 x10^3/uL (0.0-1.1) 1.4 x10^3/uL (0.0-1.1) Eosinophils # (Auto) 0.0 x10^3/uL (0.0-0.7) 0.0 x10^3/uL (0.0-0.7) Basophils # (Auto) 0.1 x10^3/uL (0.0-0.2) 0.0 x10^3/uL (0.0-0.2) Prothrombin Time 14.2 SEC (11.7-14.0) Prothromb Time International Ratio 1.2 (0.8-1.1) Activated Partial Thromboplast Time 23 SEC (24-38) Sodium Level 142 mmol/L (136-145) 140 mmol/L (136-145) Potassium Level 4.0 mmol/L (3.5-5.1) 3.8 mmol/L (3.5-5.1) Chloride Level 106 mmol/L (98-107) 105 mmol/L (98-107) Carbon Dioxide Level 29 mmol/L (21-32) 29 mmol/L (21-32) Anion Gap 7 (6-14) 6 (6-14) Blood Urea Nitrogen 10 mg/dL (8-26) 10 mg/dL (8-26) Creatinine 0.9 mg/dL (0.7-1.3) 0.8 mg/dL (0.7-1.3) Estimated GFR (Cockcroft-Gault) 94.4 108.2 Glucose Level 119 mg/dL (70-99) 111 mg/dL (70-99) Calcium Level 8.6 mg/dL (8.5-10.1) 8.2 mg/dL (8.5-10.1) Phenytoin (Dilantin) Level 0.5 mcg/mL (10.0-20.0) Phenytoin Last Dose Date 04/18/18 Phenytoin Last Dose Time 0700 Carbamazepine (Tegretol) Level 6.1 mcg/mL (4.0-12.0) Carbamazepine Last Dose Date 04/18/18 Carbamazepine Last Dose Time 0700 Ethyl Alcohol Level < 10 mg/dL (0-10) Urine Collection Type Unknown Urine Color Yellow Urine Clarity Clear Urine pH 8.5 Urine Specific [place] 1.015 Urine Protein Negative mg/dL (NEG-TRACE) Urine Glucose (UA) Negative mg/dL (NEG) Urine Ketones (Stick) Negative mg/dL (NEG) Urine Blood Negative (NEG) Urine Nitrite Negative (NEG) Urine Bilirubin Negative (NEG) Urine Urobilinogen Dipstick 0.2 mg/dL (0.2 mg/dL) Urine Leukocyte Esterase Negative (NEG) Urine RBC 0 /HPF (0-2) Urine WBC 0 /HPF (0-4) Urine Bacteria 0 /HPF (0-FEW) Urine Opiates Screen Neg (NEG) Urine Methadone Screen Neg (NEG) Urine Barbiturates Neg (NEG) Urine Phencyclidine Screen Neg (NEG) Urine Amphetamine/Methamphetamine Neg (NEG) Urine Benzodiazepines Screen Neg (NEG) Urine Cocaine Screen Neg (NEG) Urine Cannabinoids Screen Neg (NEG) Urine Ethyl Alcohol Neg (NEG) Laboratory Tests Test 04/18/18 15:00 04/18/18 15:36 04/19/18 07:10 White Blood Count 8.9 x10^3/uL (4.0-11.0) 13.2 x10^3/uL (4.0-11.0) Red Blood Count 4.56 x10^6/uL (4.30-5.70) 4.19 x10^6/uL (4.30-5.70) Hemoglobin 14.5 g/dL (13.0-17.5) 13.5 g/dL (13.0-17.5) Hematocrit 41.2 % (39.0-53.0) 38.5 % (39.0-53.0) Mean Corpuscular Volume 90 fL (79-100) 92 fL (79-100) Mean Corpuscular Hemoglobin 32 pg (25-35) 32 pg (25-35) Mean Corpuscular Hemoglobin Concent 35 g/dL (31-37) 35 g/dL (31-37) Red Cell Distribution Width 13.2 % (11.5-14.5) 13.6 % (11.5-14.5) Platelet Count 159 x10^3/uL (140-400) 152 x10^3/uL (140-400) Neutrophils (%) (Auto) 70 % (31-73) 74 % (31-73) Lymphocytes (%) (Auto) 24 % (24-48) 15 % (24-48) Monocytes (%) (Auto) 5 % (0-9) 11 % (0-9) Eosinophils (%) (Auto) 0 % (0-3) 0 % (0-3) Basophils (%) (Auto) 1 % (0-3) 0 % (0-3) Neutrophils # (Auto) 6.2 x10^3uL (1.8-7.7) 9.8 x10^3uL (1.8-7.7) Lymphocytes # (Auto) 2.1 x10^3/uL (1.0-4.8) 2.0 x10^3/uL (1.0-4.8) Monocytes # (Auto) 0.5 x10^3/uL (0.0-1.1) 1.4 x10^3/uL (0.0-1.1) Eosinophils # (Auto) 0.0 x10^3/uL (0.0-0.7) 0.0 x10^3/uL (0.0-0.7) Basophils # (Auto) 0.1 x10^3/uL (0.0-0.2) 0.0 x10^3/uL (0.0-0.2) Prothrombin Time 14.2 SEC (11.7-14.0) Prothromb Time International Ratio 1.2 (0.8-1.1) Activated Partial Thromboplast Time 23 SEC (24-38) Sodium Level 142 mmol/L (136-145) 140 mmol/L (136-145) Potassium Level 4.0 mmol/L (3.5-5.1) 3.8 mmol/L (3.5-5.1) Chloride Level 106 mmol/L (98-107) 105 mmol/L (98-107) Carbon Dioxide Level 29 mmol/L (21-32) 29 mmol/L (21-32) Anion Gap 7 (6-14) 6 (6-14) Blood Urea Nitrogen 10 mg/dL (8-26) 10 mg/dL (8-26) Creatinine 0.9 mg/dL (0.7-1.3) 0.8 mg/dL (0.7-1.3) Estimated GFR (Cockcroft-Gault) 94.4 108.2 Glucose Level 119 mg/dL (70-99) 111 mg/dL (70-99) Calcium Level 8.6 mg/dL (8.5-10.1) 8.2 mg/dL (8.5-10.1) Phenytoin (Dilantin) Level 0.5 mcg/mL (10.0-20.0) Phenytoin Last Dose Date 04/18/18 Phenytoin Last Dose Time 0700 Carbamazepine (Tegretol) Level 6.1 mcg/mL (4.0-12.0) Carbamazepine Last Dose Date 04/18/18 Carbamazepine Last Dose Time 0700 Ethyl Alcohol Level < 10 mg/dL (0-10) Urine Collection Type Unknown Urine Color Yellow Urine Clarity Clear Urine pH 8.5 Urine Specific [place] 1.015 Urine Protein Negative mg/dL (NEG-TRACE) Urine Glucose (UA) Negative mg/dL (NEG) Urine Ketones (Stick) Negative mg/dL (NEG) Urine Blood Negative (NEG) Urine Nitrite Negative (NEG) Urine Bilirubin Negative (NEG) Urine Urobilinogen Dipstick 0.2 mg/dL (0.2 mg/dL) Urine Leukocyte Esterase Negative (NEG) Urine RBC 0 /HPF (0-2) Urine WBC 0 /HPF (0-4) Urine Bacteria 0 /HPF (0-FEW) Urine Opiates Screen Neg (NEG) Urine Methadone Screen Neg (NEG) Urine Barbiturates Neg (NEG) Urine Phencyclidine Screen Neg (NEG) Urine Amphetamine/Methamphetamine Neg (NEG) Urine Benzodiazepines Screen Neg (NEG) Urine Cocaine Screen Neg (NEG) Urine Cannabinoids Screen Neg (NEG) Urine Ethyl Alcohol Neg (NEG) Medications Current Medications Ringer's Solution 1,000 ml @ 75 mls/hr 1X ONCE IV Last administered on at 16:43; Start 04/18/18 at 16:15; Stop 04/19/18 at 05:34; Status DC Levetiracetam 1000 mg/Dextrose 110 ml @ 440 mls/hr 1X ONCE IV Last administered on 04/18/18at 16:43; Start 04/18/18 at 16:15; Stop 04/18/18 at 16 :29; Status DC Ondansetron HCl (Zofran) 8 mg 1X ONCE IM ; Start 04/18/18 at 16:15; Stop at 16:16; Status DC Ondansetron HCl (Zofran) 4 mg PRN Q8HRS PRN IV NAUSEA/VOMITING; Start at 16:15; Stop 04/18/18 at 19:11; Status DC Fentanyl Citrate (Fentanyl 2ml Vial) 50 mcg PRN Q1HR PRN IV PAIN Last administered on 04/19/18at 08:33; Start 04/18/18 at 16:15; Stop 04/19/18 at 16 :14 Ondansetron HCl (Zofran) 8 mg 1X ONCE IV Last administered on 04/18/18at 16:00 ; Start 04/18/18 at 16:30; Stop 04/18/18 at 16:31; Status DC Levetiracetam 500 mg/Dextrose 105 ml @ 420 mls/hr Q12HR IV Last administered on 04/19/18at 08:37; Start 04/18/18 at 19:00 Prochlorperazine Edisylate (Compazine) 5 mg PRN Q4HRS PRN IV NAUSEA/VOMITING Last administered on 04/19/18at 08:39; Start 04/18/18 at 19:15 Sodium Chloride 1,000 ml @ 80 mls/hr [id number] IV Last administered on at 07:41; Start 04/18/18 at 21:00 Active Scripts Active Reported Paxil (Paroxetine Hcl) 40 Mg Tablet 40 Mg PO HS Colace (Docusate Sodium) 100 Mg Capsule 100 Mg PO BID Tegretol (Carbamazepine) 200 Mg Tablet 200 Mg PO BID Vitals/I & O Vital Sign - Last 24 Hours 04/18/18 04/18/18 04/18/18 04/18/18 14:47 14:50 15:15 15:25 Temp 98.8 98.8 Pulse 73 73 70 70 Resp 20 20 20 B/P (MAP) 131/90 (104) 131/90 (104) 128/81 (97) 130/88 (102) Pulse Ox 100 100 100 O2 Delivery Room Air Room Air Room Air 04/18/18 04/18/18 04/18/18 04/18/18 15:27 15:35 15:45 15:55 Pulse 72 70 78 Resp 18 18 B/P (MAP) 122/82 (95) 124/80 (95) 129/85 (100) Pulse Ox 100 100 O2 Delivery Room Air Room Air Room Air 04/18/18 04/18/18 04/18/18 04/18/18 16:05 16:15 16:25 16:35 Pulse 78 74 68 82 Resp 18 18 20 20 B/P (MAP) 126/80 (95) 124/80 (95) 121/83 (96) 142/75 (97) Pulse Ox 96 100 100 100 O2 Delivery Room Air Room Air Room Air Room Air 04/18/18 04/18/18 04/18/18 04/18/18 16:45 16:55 17:05 17:15 Pulse 66 72 70 70 Resp 20 20 B/P (MAP) 135/78 (97) 114/66 (82) 110/60 (77) 114/57 (76) Pulse Ox 100 100 97 100 O2 Delivery Room Air Room Air Room Air Room Air 04/18/18 04/18/18 04/18/18 04/18/18 17:45 17:53 18:00 19:00 Temp 98.0 98.0 Pulse 70 70 76 Resp 11 12 16 B/P (MAP) 125/81 (96) 122/85 (97) 135/78 (97) Pulse Ox 97 100 95 O2 Delivery Room Air Room Air Room Air Room Air 04/18/18 04/18/18 04/18/18 04/18/18 19:15 19:30 19:43 19:45 Pulse 68 82 84 Resp 16 16 16 B/P (MAP) 108/67 (81) 134/92 (106) 133/88 (103) Pulse Ox 100 99 100 100 O2 Delivery Room Air Room Air Room Air Room Air 04/18/18 04/18/18 04/18/18 04/18/18 20:00 20:00 20:30 21:00 Temp 98.1 98.1 Pulse 78 78 94 Resp 19 20 12 B/P (MAP) 150/91 (110) 105/63 (77) 93/60 (71) Pulse Ox 99 97 96 O2 Delivery Room Air Room Air Room Air Room Air 04/18/18 04/18/18 04/18/18 04/19/18 22:00 23:00 23:59 00:00 Temp 100.0 100.0 Pulse 108 107 98 Resp 16 12 11 B/P (MAP) 101/58 (72) 121/70 (87) 106/71 (83) Pulse Ox 95 95 92 O2 Delivery Room Air Room Air Nasal Cannula Nasal Cannula O2 Flow Rate 4.0 4.0 04/19/18 04/19/18 04/19/18 04/19/18 00:04 01:00 02:00 03:00 Pulse 96 96 94 Resp 16 18 18 B/P (MAP) 114/78 (90) 116/75 (89) 119/75 (90) Pulse Ox 93 97 97 97 O2 Delivery Room Air Nasal Cannula Nasal Cannula Nasal Cannula O2 Flow Rate 4.0 4.0 4.0 04/19/18 04/19/18 04/19/18 04/19/18 04:00 04:00 04:30 05:00 Temp 98.5 98.5 Pulse 101 83 Resp 18 20 B/P (MAP) 116/74 (88) 124/72 (89) Pulse Ox 95 96 O2 Delivery Room Air Room Air Room Air Room Air 04/19/18 04/19/18 04/19/18 04/19/18 06:00 07:42 08:33 08:40 Temp 98.2 98.2 Pulse 75 68 64 Resp 16 23 16 B/P (MAP) 92/58 (69) 109/72 (84) 63/ Pulse Ox 96 94 94 96 O2 Delivery Room Air Room Air Room Air Room Air 04/19/18 04/19/18 04/19/18 09:00 09:03 11:56 Temp 98.1 98.1 Pulse 64 Resp 12 B/P (MAP) 95/76 (82) Pulse Ox 95 94 O2 Delivery Room Air Room Air Room Air Intake and Output 04/18/18 04/18/18 04/19/18 15:00 23:00 07:00 Intake Total 440 ml 0 ml Output Total 0 ml 300 ml Balance 440 ml -300 ml VIVIAN OLMEDO III DO Apr 19, 2018 12:55
--- NOTE | 2018-04-19 14:20 | PDOC ---
PROGRESS NOTES Subjective Subjective resting in bed c/o headache Objective Objective Vital Signs Date Time Temp Pulse Resp B/P (MAP) Pulse Ox O2 Delivery O2 Flow Rate FiO2 04/19/18 11:56 98.1 64 12 95/76 (82) 94 Room Air 98.1 04/19/18 03:00 4.0 Intake and Output 04/19/18 07:00 Intake Total 440 ml Output Total 300 ml Balance 140 ml Intake Oral 0 ml IV Total 440 ml Output Urine Total 300 ml # Voids 2 Physical Exam General: Oriented X3, Cooperative, No acute distress MUSCULOSKELETAL: Other (JOHNSON) Neuro: Normal speech Plan Plan of Care Mechanical fall with bilateral traumatic cerebral hemorrhages History of epilepsy Neurology following repeat CT head scheduled for this afternoon. will follow SCDs Comment Review of Relevant I have reviewed the following items laura (where applicable) has been applied. Labs Laboratory Tests Test 04/18/18 15:00 04/18/18 15:36 04/19/18 07:10 White Blood Count 8.9 x10^3/uL (4.0-11.0) 13.2 x10^3/uL (4.0-11.0) Red Blood Count 4.56 x10^6/uL (4.30-5.70) 4.19 x10^6/uL (4.30-5.70) Hemoglobin 14.5 g/dL (13.0-17.5) 13.5 g/dL (13.0-17.5) Hematocrit 41.2 % (39.0-53.0) 38.5 % (39.0-53.0) Mean Corpuscular Volume 90 fL (79-100) 92 fL (79-100) Mean Corpuscular Hemoglobin 32 pg (25-35) 32 pg (25-35) Mean Corpuscular Hemoglobin Concent 35 g/dL (31-37) 35 g/dL (31-37) Red Cell Distribution Width 13.2 % (11.5-14.5) 13.6 % (11.5-14.5) Platelet Count 159 x10^3/uL (140-400) 152 x10^3/uL (140-400) Neutrophils (%) (Auto) 70 % (31-73) 74 % (31-73) Lymphocytes (%) (Auto) 24 % (24-48) 15 % (24-48) Monocytes (%) (Auto) 5 % (0-9) 11 % (0-9) Eosinophils (%) (Auto) 0 % (0-3) 0 % (0-3) Basophils (%) (Auto) 1 % (0-3) 0 % (0-3) Neutrophils # (Auto) 6.2 x10^3uL (1.8-7.7) 9.8 x10^3uL (1.8-7.7) Lymphocytes # (Auto) 2.1 x10^3/uL (1.0-4.8) 2.0 x10^3/uL (1.0-4.8) Monocytes # (Auto) 0.5 x10^3/uL (0.0-1.1) 1.4 x10^3/uL (0.0-1.1) Eosinophils # (Auto) 0.0 x10^3/uL (0.0-0.7) 0.0 x10^3/uL (0.0-0.7) Basophils # (Auto) 0.1 x10^3/uL (0.0-0.2) 0.0 x10^3/uL (0.0-0.2) Prothrombin Time 14.2 SEC (11.7-14.0) Prothromb Time International Ratio 1.2 (0.8-1.1) Activated Partial Thromboplast Time 23 SEC (24-38) Sodium Level 142 mmol/L (136-145) 140 mmol/L (136-145) Potassium Level 4.0 mmol/L (3.5-5.1) 3.8 mmol/L (3.5-5.1) Chloride Level 106 mmol/L (98-107) 105 mmol/L (98-107) Carbon Dioxide Level 29 mmol/L (21-32) 29 mmol/L (21-32) Anion Gap 7 (6-14) 6 (6-14) Blood Urea Nitrogen 10 mg/dL (8-26) 10 mg/dL (8-26) Creatinine 0.9 mg/dL (0.7-1.3) 0.8 mg/dL (0.7-1.3) Estimated GFR (Cockcroft-Gault) 94.4 108.2 Glucose Level 119 mg/dL (70-99) 111 mg/dL (70-99) Calcium Level 8.6 mg/dL (8.5-10.1) 8.2 mg/dL (8.5-10.1) Phenytoin (Dilantin) Level 0.5 mcg/mL (10.0-20.0) Phenytoin Last Dose Date 04/18/18 Phenytoin Last Dose Time 0700 Carbamazepine (Tegretol) Level 6.1 mcg/mL (4.0-12.0) Carbamazepine Last Dose Date 04/18/18 Carbamazepine Last Dose Time 0700 Ethyl Alcohol Level < 10 mg/dL (0-10) Urine Collection Type Unknown Urine Color Yellow Urine Clarity Clear Urine pH 8.5 Urine Specific [place] 1.015 Urine Protein Negative mg/dL (NEG-TRACE) Urine Glucose (UA) Negative mg/dL (NEG) Urine Ketones (Stick) Negative mg/dL (NEG) Urine Blood Negative (NEG) Urine Nitrite Negative (NEG) Urine Bilirubin Negative (NEG) Urine Urobilinogen Dipstick 0.2 mg/dL (0.2 mg/dL) Urine Leukocyte Esterase Negative (NEG) Urine RBC 0 /HPF (0-2) Urine WBC 0 /HPF (0-4) Urine Bacteria 0 /HPF (0-FEW) Urine Opiates Screen Neg (NEG) Urine Methadone Screen Neg (NEG) Urine Barbiturates Neg (NEG) Urine Phencyclidine Screen Neg (NEG) Urine Amphetamine/Methamphetamine Neg (NEG) Urine Benzodiazepines Screen Neg (NEG) Urine Cocaine Screen Neg (NEG) Urine Cannabinoids Screen Neg (NEG) Urine Ethyl Alcohol Neg (NEG) Laboratory Tests Test 04/18/18 15:00 04/18/18 15:36 04/19/18 07:10 White Blood Count 8.9 x10^3/uL (4.0-11.0) 13.2 x10^3/uL (4.0-11.0) Red Blood Count 4.56 x10^6/uL (4.30-5.70) 4.19 x10^6/uL (4.30-5.70) Hemoglobin 14.5 g/dL (13.0-17.5) 13.5 g/dL (13.0-17.5) Hematocrit 41.2 % (39.0-53.0) 38.5 % (39.0-53.0) Mean Corpuscular Volume 90 fL (79-100) 92 fL (79-100) Mean Corpuscular Hemoglobin 32 pg (25-35) 32 pg (25-35) Mean Corpuscular Hemoglobin Concent 35 g/dL (31-37) 35 g/dL (31-37) Red Cell Distribution Width 13.2 % (11.5-14.5) 13.6 % (11.5-14.5) Platelet Count 159 x10^3/uL (140-400) 152 x10^3/uL (140-400) Neutrophils (%) (Auto) 70 % (31-73) 74 % (31-73) Lymphocytes (%) (Auto) 24 % (24-48) 15 % (24-48) Monocytes (%) (Auto) 5 % (0-9) 11 % (0-9) Eosinophils (%) (Auto) 0 % (0-3) 0 % (0-3) Basophils (%) (Auto) 1 % (0-3) 0 % (0-3) Neutrophils # (Auto) 6.2 x10^3uL (1.8-7.7) 9.8 x10^3uL (1.8-7.7) Lymphocytes # (Auto) 2.1 x10^3/uL (1.0-4.8) 2.0 x10^3/uL (1.0-4.8) Monocytes # (Auto) 0.5 x10^3/uL (0.0-1.1) 1.4 x10^3/uL (0.0-1.1) Eosinophils # (Auto) 0.0 x10^3/uL (0.0-0.7) 0.0 x10^3/uL (0.0-0.7) Basophils # (Auto) 0.1 x10^3/uL (0.0-0.2) 0.0 x10^3/uL (0.0-0.2) Prothrombin Time 14.2 SEC (11.7-14.0) Prothromb Time International Ratio 1.2 (0.8-1.1) Activated Partial Thromboplast Time 23 SEC (24-38) Sodium Level 142 mmol/L (136-145) 140 mmol/L (136-145) Potassium Level 4.0 mmol/L (3.5-5.1) 3.8 mmol/L (3.5-5.1) Chloride Level 106 mmol/L (98-107) 105 mmol/L (98-107) Carbon Dioxide Level 29 mmol/L (21-32) 29 mmol/L (21-32) Anion Gap 7 (6-14) 6 (6-14) Blood Urea Nitrogen 10 mg/dL (8-26) 10 mg/dL (8-26) Creatinine 0.9 mg/dL (0.7-1.3) 0.8 mg/dL (0.7-1.3) Estimated GFR (Cockcroft-Gault) 94.4 108.2 Glucose Level 119 mg/dL (70-99) 111 mg/dL (70-99) Calcium Level 8.6 mg/dL (8.5-10.1) 8.2 mg/dL (8.5-10.1) Phenytoin (Dilantin) Level 0.5 mcg/mL (10.0-20.0) Phenytoin Last Dose Date 04/18/18 Phenytoin Last Dose Time 0700 Carbamazepine (Tegretol) Level 6.1 mcg/mL (4.0-12.0) Carbamazepine Last Dose Date 04/18/18 Carbamazepine Last Dose Time 0700 Ethyl Alcohol Level < 10 mg/dL (0-10) Urine Collection Type Unknown Urine Color Yellow Urine Clarity Clear Urine pH 8.5 Urine Specific [place] 1.015 Urine Protein Negative mg/dL (NEG-TRACE) Urine Glucose (UA) Negative mg/dL (NEG) Urine Ketones (Stick) Negative mg/dL (NEG) Urine Blood Negative (NEG) Urine Nitrite Negative (NEG) Urine Bilirubin Negative (NEG) Urine Urobilinogen Dipstick 0.2 mg/dL (0.2 mg/dL) Urine Leukocyte Esterase Negative (NEG) Urine RBC 0 /HPF (0-2) Urine WBC 0 /HPF (0-4) Urine Bacteria 0 /HPF (0-FEW) Urine Opiates Screen Neg (NEG) Urine Methadone Screen Neg (NEG) Urine Barbiturates Neg (NEG) Urine Phencyclidine Screen Neg (NEG) Urine Amphetamine/Methamphetamine Neg (NEG) Urine Benzodiazepines Screen Neg (NEG) Urine Cocaine Screen Neg (NEG) Urine Cannabinoids Screen Neg (NEG) Urine Ethyl Alcohol Neg (NEG) Medications Current Medications Ringer's Solution 1,000 ml @ 75 mls/hr 1X ONCE IV Last administered on at 16:43; Start 04/18/18 at 16:15; Stop 04/19/18 at 05:34; Status DC Levetiracetam 1000 mg/Dextrose 110 ml @ 440 mls/hr 1X ONCE IV Last administered on 04/18/18at 16:43; Start 04/18/18 at 16:15; Stop 04/18/18 at 16 :29; Status DC Ondansetron HCl (Zofran) 8 mg 1X ONCE IM ; Start 04/18/18 at 16:15; Stop at 16:16; Status DC Ondansetron HCl (Zofran) 4 mg PRN Q8HRS PRN IV NAUSEA/VOMITING; Start at 16:15; Stop 04/18/18 at 19:11; Status DC Fentanyl Citrate (Fentanyl 2ml Vial) 50 mcg PRN Q1HR PRN IV PAIN Last administered on 04/19/18at 08:33; Start 04/18/18 at 16:15; Stop 04/19/18 at 16 :14 Ondansetron HCl (Zofran) 8 mg 1X ONCE IV Last administered on 04/18/18at 16:00 ; Start 04/18/18 at 16:30; Stop 04/18/18 at 16:31; Status DC Levetiracetam 500 mg/Dextrose 105 ml @ 420 mls/hr Q12HR IV Last administered on 04/19/18at 08:37; Start 04/18/18 at 19:00 Prochlorperazine Edisylate (Compazine) 5 mg PRN Q4HRS PRN IV NAUSEA/VOMITING Last administered on 04/19/18at 08:39; Start 04/18/18 at 19:15 Sodium Chloride 1,000 ml @ 80 mls/hr [id number] IV Last administered on at 07:41; Start 04/18/18 at 21:00 Active Scripts Active Reported Paxil (Paroxetine Hcl) 40 Mg Tablet 40 Mg PO HS Colace (Docusate Sodium) 100 Mg Capsule 100 Mg PO BID Tegretol (Carbamazepine) 200 Mg Tablet 200 Mg PO BID Vitals/I & O Vital Sign - Last 24 Hours 04/18/18 04/18/18 04/18/18 04/18/18 14:47 14:50 15:15 15:25 Temp 98.8 98.8 Pulse 73 73 70 70 Resp 20 20 20 B/P (MAP) 131/90 (104) 131/90 (104) 128/81 (97) 130/88 (102) Pulse Ox 100 100 100 O2 Delivery Room Air Room Air Room Air 04/18/18 04/18/18 04/18/18 04/18/18 15:27 15:35 15:45 15:55 Pulse 72 70 78 Resp 18 18 B/P (MAP) 122/82 (95) 124/80 (95) 129/85 (100) Pulse Ox 100 100 O2 Delivery Room Air Room Air Room Air 04/18/18 04/18/18 04/18/18 04/18/18 16:05 16:15 16:25 16:35 Pulse 78 74 68 82 Resp 18 18 20 20 B/P (MAP) 126/80 (95) 124/80 (95) 121/83 (96) 142/75 (97) Pulse Ox 96 100 100 100 O2 Delivery Room Air Room Air Room Air Room Air 04/18/18 04/18/18 04/18/18 04/18/18 16:45 16:55 17:05 17:15 Pulse 66 72 70 70 Resp 20 20 B/P (MAP) 135/78 (97) 114/66 (82) 110/60 (77) 114/57 (76) Pulse Ox 100 100 97 100 O2 Delivery Room Air Room Air Room Air Room Air 04/18/18 04/18/18 04/18/18 04/18/18 17:45 17:53 18:00 19:00 Temp 98.0 98.0 Pulse 70 70 76 Resp 11 12 16 B/P (MAP) 125/81 (96) 122/85 (97) 135/78 (97) Pulse Ox 97 100 95 O2 Delivery Room Air Room Air Room Air Room Air 04/18/18 04/18/18 04/18/18 04/18/18 19:15 19:30 19:43 19:45 Pulse 68 82 84 Resp 16 16 16 B/P (MAP) 108/67 (81) 134/92 (106) 133/88 (103) Pulse Ox 100 99 100 100 O2 Delivery Room Air Room Air Room Air Room Air 04/18/18 04/18/18 04/18/18 04/18/18 20:00 20:00 20:30 21:00 Temp 98.1 98.1 Pulse 78 78 94 Resp 19 20 12 B/P (MAP) 150/91 (110) 105/63 (77) 93/60 (71) Pulse Ox 99 97 96 O2 Delivery Room Air Room Air Room Air Room Air 04/18/18 04/18/18 04/18/18 04/19/18 22:00 23:00 23:59 00:00 Temp 100.0 100.0 Pulse 108 107 98 Resp 16 12 11 B/P (MAP) 101/58 (72) 121/70 (87) 106/71 (83) Pulse Ox 95 95 92 O2 Delivery Room Air Room Air Nasal Cannula Nasal Cannula O2 Flow Rate 4.0 4.0 04/19/18 04/19/18 04/19/18 04/19/18 00:04 01:00 02:00 03:00 Pulse 96 96 94 Resp 16 18 18 B/P (MAP) 114/78 (90) 116/75 (89) 119/75 (90) Pulse Ox 93 97 97 97 O2 Delivery Room Air Nasal Cannula Nasal Cannula Nasal Cannula O2 Flow Rate 4.0 4.0 4.0 04/19/18 04/19/18 04/19/18 04/19/18 04:00 04:00 04:30 05:00 Temp 98.5 98.5 Pulse 101 83 Resp 18 20 B/P (MAP) 116/74 (88) 124/72 (89) Pulse Ox 95 96 O2 Delivery Room Air Room Air Room Air Room Air 04/19/18 04/19/18 04/19/18 04/19/18 06:00 07:42 08:33 08:40 Temp 98.2 98.2 Pulse 75 68 64 Resp 16 23 16 B/P (MAP) 92/58 (69) 109/72 (84) 63/ Pulse Ox 96 94 94 96 O2 Delivery Room Air Room Air Room Air Room Air 04/19/18 04/19/18 04/19/18 09:00 09:03 11:56 Temp 98.1 98.1 Pulse 64 Resp 12 B/P (MAP) 95/76 (82) Pulse Ox 95 94 O2 Delivery Room Air Room Air Room Air Intake and Output 04/18/18 04/18/18 04/19/18 15:00 23:00 07:00 Intake Total 440 ml 0 ml Output Total 0 ml 300 ml Balance 440 ml -300 ml EDEL BOLTON MD Apr 19, 2018 14:20
--- NOTE | 2018-04-19 15:24 | RAD ---
CT HEAD WITHOUT CONTRAST 04/19/2018 2:31 PM Indication: Subdural HEMATOMA
PRIOR SENT Comparison: CT head, yesterday Procedure: Multidetector CT imaging of the head was performed without the administration of contrast. Findings: Small right-sided, temporal extra-axial hemorrhage is grossly unchanged. Multifocal supratentorial subarachnoid hemorrhage most prominently involving the left frontal and temporal lobes is less prominent as blood products have decreased in attenuation. No new acute mass effect or midline shift is identified. The ventricles and basilar cisterns have a stable configuration. There is a probable nondisplaced fracture involving the right parietal bone extending to the squamous suture. IMPRESSION: 1. Stable small right temporal extra-axial hemorrhage 2. Decreasing with supratentorial subarachnoid hemorrhage 3. Probable nondisplaced fracture involving the right parietal bone extending to the squamous suture CT DOSING PQRS STATEMENT: One or more of the following individualized dose reduction techniques were utilized for this examination: 1. Automated exposure control 2. Adjustment of the mA and/or kV according to patient size 3. Use of iterative reconstruction technique Electronically signed by: Chris Castillo MD (04/19/2018 3:21 PM) [id number]
[2018-04-20 04:00] VITALS: BP 114/67
[2018-04-20 06:27] LABS: CALCIUM 8.2 mg/dL (8.5-10.1); CREATININE 0.7 mg/dL (0.7-1.3); GFR 126.2; POTASSIUM 4.1 mmol/L (3.5-5.1)
[2018-04-20 06:35] LABS: BASO % 0 % (0-3); EOS % 0 % (0-3); HEMATOCRIT 35.7 % (39.0-53.0); HEMOGLOBIN 12.5 g/dL (13.0-17.5); LYMPH # 2.5 x10^3/uL (1.0-4.8); LYMPH % 22 % (24-48); MEAN CORPUSCULAR HEMOGLOBIN 32 pg (25-35); MEAN CORPUSCULAR HGB CONC 35 g/dL (31-37); MEAN CORPUSCULAR VOLUME 91 fL (79-100); MONO # 0.8 x10^3/uL (0.0-1.1); MONO % 7 % (0-9); NEUT # 8.2 x10^3uL (1.8-7.7); NEUT % 71 % (31-73); PLATELET COUNT 137 x10^3/uL (140-400); RED BLOOD COUNT 3.91 x10^6/uL (4.30-5.70); RED CELL DISTRIBUTION WIDTH 13.2 % (11.5-14.5); WHITE BLOOD COUNT 11.5 x10^3/uL (4.0-11.0)
[2018-04-20 08:00] VITALS: BP 111/76
[2018-04-20] MEDS: fentaNYL PF VIAL 100 MCG/2 ML VIAL IV PRN (08:33)
[2018-04-20] MEDS: levETIRAcetam 500 MG in IV DEXTROSE 5% 100ML 100 ML IV SCH (08:36)
[2018-04-20] MEDS ORDERED: HYDROcodone/APAP 5/325MG 1 TAB TABLET PO PRN (10:15)
--- NOTE | 2018-04-20 10:17 | PDOC ---
PROGRESS NOTES Subjective Subjective resting quietly c/o headache nausea and vomiting when he eats Objective Objective Vital Signs Date Time Temp Pulse Resp B/P (MAP) Pulse Ox O2 Delivery O2 Flow Rate FiO2 04/20/18 08:33 16 Room Air 04/20/18 04:00 98.5 74 114/67 (83) 98 98.5 04/19/18 03:00 4.0 Intake and Output 04/20/18 07:00 Intake Total 3021 ml Output Total 1450 ml Balance 1571 ml Intake Oral 500 ml IV Total 2521 ml Output Urine Total 1450 ml # Voids 2 Physical Exam General: Oriented X3, Cooperative MUSCULOSKELETAL: Other (JOHNSON) Neuro: Normal speech Plan Plan of Care may transfer to floor SCDs increase activity as tolerated Comment Review of Relevant I have reviewed the following items laura (where applicable) has been applied. Labs Laboratory Tests Test 04/18/18 15:00 04/18/18 15:36 04/18/18 20:00 04/19/18 07:10 White Blood Count 8.9 x10^3/uL (4.0-11.0) 13.2 x10^3/uL (4.0-11.0) Red Blood Count 4.56 x10^6/uL (4.30-5.70) 4.19 x10^6/uL (4.30-5.70) Hemoglobin 14.5 g/dL (13.0-17.5) 13.5 g/dL (13.0-17.5) Hematocrit 41.2 % (39.0-53.0) 38.5 % (39.0-53.0) Mean Corpuscular Volume 90 fL (79-100) 92 fL (79-100) Mean Corpuscular Hemoglobin 32 pg (25-35) 32 pg (25-35) Mean Corpuscular Hemoglobin Concent 35 g/dL (31-37) 35 g/dL (31-37) Red Cell Distribution Width 13.2 % (11.5-14.5) 13.6 % (11.5-14.5) Platelet Count 159 x10^3/uL (140-400) 152 x10^3/uL (140-400) Neutrophils (%) (Auto) 70 % (31-73) 74 % (31-73) Lymphocytes (%) (Auto) 24 % (24-48) 15 % (24-48) Monocytes (%) (Auto) 5 % (0-9) 11 % (0-9) Eosinophils (%) (Auto) 0 % (0-3) 0 % (0-3) Basophils (%) (Auto) 1 % (0-3) 0 % (0-3) Neutrophils # (Auto) 6.2 x10^3uL (1.8-7.7) 9.8 x10^3uL (1.8-7.7) Lymphocytes # (Auto) 2.1 x10^3/uL (1.0-4.8) 2.0 x10^3/uL (1.0-4.8) Monocytes # (Auto) 0.5 x10^3/uL (0.0-1.1) 1.4 x10^3/uL (0.0-1.1) Eosinophils # (Auto) 0.0 x10^3/uL (0.0-0.7) 0.0 x10^3/uL (0.0-0.7) Basophils # (Auto) 0.1 x10^3/uL (0.0-0.2) 0.0 x10^3/uL (0.0-0.2) Prothrombin Time 14.2 SEC (11.7-14.0) Prothromb Time International Ratio 1.2 (0.8-1.1) Activated Partial Thromboplast Time 23 SEC (24-38) Sodium Level 142 mmol/L (136-145) 140 mmol/L (136-145) Potassium Level 4.0 mmol/L (3.5-5.1) 3.8 mmol/L (3.5-5.1) Chloride Level 106 mmol/L (98-107) 105 mmol/L (98-107) Carbon Dioxide Level 29 mmol/L (21-32) 29 mmol/L (21-32) Anion Gap 7 (6-14) 6 (6-14) Blood Urea Nitrogen 10 mg/dL (8-26) 10 mg/dL (8-26) Creatinine 0.9 mg/dL (0.7-1.3) 0.8 mg/dL (0.7-1.3) Estimated GFR (Cockcroft-Gault) 94.4 108.2 Glucose Level 119 mg/dL (70-99) 111 mg/dL (70-99) Calcium Level 8.6 mg/dL (8.5-10.1) 8.2 mg/dL (8.5-10.1) Phenytoin (Dilantin) Level 0.5 mcg/mL (10.0-20.0) Phenytoin Last Dose Date 04/18/18 Phenytoin Last Dose Time 0700 Carbamazepine (Tegretol) Level 6.1 mcg/mL (4.0-12.0) Carbamazepine Last Dose Date 04/18/18 Carbamazepine Last Dose Time 0700 Ethyl Alcohol Level < 10 mg/dL (0-10) Urine Collection Type Unknown Urine Color Yellow Urine Clarity Clear Urine pH 8.5 Urine Specific [place] 1.015 Urine Protein Negative mg/dL (NEG-TRACE) Urine Glucose (UA) Negative mg/dL (NEG) Urine Ketones (Stick) Negative mg/dL (NEG) Urine Blood Negative (NEG) Urine Nitrite Negative (NEG) Urine Bilirubin Negative (NEG) Urine Urobilinogen Dipstick 0.2 mg/dL (0.2 mg/dL) Urine Leukocyte Esterase Negative (NEG) Urine RBC 0 /HPF (0-2) Urine WBC 0 /HPF (0-4) Urine Bacteria 0 /HPF (0-FEW) Urine Opiates Screen Neg (NEG) Urine Methadone Screen Neg (NEG) Urine Barbiturates Neg (NEG) Urine Phencyclidine Screen Neg (NEG) Urine Amphetamine/Methamphetamine Neg (NEG) Urine Benzodiazepines Screen Neg (NEG) Urine Cocaine Screen Neg (NEG) Urine Cannabinoids Screen Neg (NEG) Urine Ethyl Alcohol Neg (NEG) Nasal Screen MRSA (PCR) Negative (Negative) Test 04/20/18 05:10 White Blood Count 11.5 x10^3/uL (4.0-11.0) Red Blood Count 3.91 x10^6/uL (4.30-5.70) Hemoglobin 12.5 g/dL (13.0-17.5) Hematocrit 35.7 % (39.0-53.0) Mean Corpuscular Volume 91 fL (79-100) Mean Corpuscular Hemoglobin 32 pg (25-35) Mean Corpuscular Hemoglobin Concent 35 g/dL (31-37) Red Cell Distribution Width 13.2 % (11.5-14.5) Platelet Count 137 x10^3/uL (140-400) Neutrophils (%) (Auto) 71 % (31-73) Lymphocytes (%) (Auto) 22 % (24-48) Monocytes (%) (Auto) 7 % (0-9) Eosinophils (%) (Auto) 0 % (0-3) Basophils (%) (Auto) 0 % (0-3) Neutrophils # (Auto) 8.2 x10^3uL (1.8-7.7) Lymphocytes # (Auto) 2.5 x10^3/uL (1.0-4.8) Monocytes # (Auto) 0.8 x10^3/uL (0.0-1.1) Eosinophils # (Auto) 0.0 x10^3/uL (0.0-0.7) Basophils # (Auto) 0.0 x10^3/uL (0.0-0.2) Sodium Level 142 mmol/L (136-145) Potassium Level 4.1 mmol/L (3.5-5.1) Chloride Level 108 mmol/L (98-107) Carbon Dioxide Level 25 mmol/L (21-32) Anion Gap 9 (6-14) Blood Urea Nitrogen 8 mg/dL (8-26) Creatinine 0.7 mg/dL (0.7-1.3) Estimated GFR (Cockcroft-Gault) 126.2 Glucose Level 95 mg/dL (70-99) Calcium Level 8.2 mg/dL (8.5-10.1) Laboratory Tests Test 04/20/18 05:10 White Blood Count 11.5 x10^3/uL (4.0-11.0) Red Blood Count 3.91 x10^6/uL (4.30-5.70) Hemoglobin 12.5 g/dL (13.0-17.5) Hematocrit 35.7 % (39.0-53.0) Mean Corpuscular Volume 91 fL (79-100) Mean Corpuscular Hemoglobin 32 pg (25-35) Mean Corpuscular Hemoglobin Concent 35 g/dL (31-37) Red Cell Distribution Width 13.2 % (11.5-14.5) Platelet Count 137 x10^3/uL (140-400) Neutrophils (%) (Auto) 71 % (31-73) Lymphocytes (%) (Auto) 22 % (24-48) Monocytes (%) (Auto) 7 % (0-9) Eosinophils (%) (Auto) 0 % (0-3) Basophils (%) (Auto) 0 % (0-3) Neutrophils # (Auto) 8.2 x10^3uL (1.8-7.7) Lymphocytes # (Auto) 2.5 x10^3/uL (1.0-4.8) Monocytes # (Auto) 0.8 x10^3/uL (0.0-1.1) Eosinophils # (Auto) 0.0 x10^3/uL (0.0-0.7) Basophils # (Auto) 0.0 x10^3/uL (0.0-0.2) Sodium Level 142 mmol/L (136-145) Potassium Level 4.1 mmol/L (3.5-5.1) Chloride Level 108 mmol/L (98-107) Carbon Dioxide Level 25 mmol/L (21-32) Anion Gap 9 (6-14) Blood Urea Nitrogen 8 mg/dL (8-26) Creatinine 0.7 mg/dL (0.7-1.3) Estimated GFR (Cockcroft-Gault) 126.2 Glucose Level 95 mg/dL (70-99) Calcium Level 8.2 mg/dL (8.5-10.1) Medications Current Medications Ringer's Solution 1,000 ml @ 75 mls/hr 1X ONCE IV Last administered on at 16:43; Start 04/18/18 at 16:15; Stop 04/19/18 at 05:34; Status DC Levetiracetam 1000 mg/Dextrose 110 ml @ 440 mls/hr 1X ONCE IV Last administered on 04/18/18at 16:43; Start 04/18/18 at 16:15; Stop 04/18/18 at 16 :29; Status DC Ondansetron HCl (Zofran) 8 mg 1X ONCE IM ; Start 04/18/18 at 16:15; Stop at 16:16; Status DC Ondansetron HCl (Zofran) 4 mg PRN Q8HRS PRN IV NAUSEA/VOMITING; Start at 16:15; Stop 04/18/18 at 19:11; Status DC Fentanyl Citrate (Fentanyl 2ml Vial) 50 mcg PRN Q1HR PRN IV PAIN Last administered on 04/19/18at 08:33; Start 04/18/18 at 16:15; Stop 04/19/18 at 16 :14; Status DC Ondansetron HCl (Zofran) 8 mg 1X ONCE IV Last administered on 04/18/18at 16:00 ; Start 04/18/18 at 16:30; Stop 04/18/18 at 16:31; Status DC Levetiracetam 500 mg/Dextrose 105 ml @ 420 mls/hr Q12HR IV Last administered on 04/20/18at 08:36; Start 04/18/18 at 19:00 Prochlorperazine Edisylate (Compazine) 5 mg PRN Q4HRS PRN IV NAUSEA/VOMITING Last administered on 04/19/18at 08:39; Start 04/18/18 at 19:15 Sodium Chloride 1,000 ml @ 80 mls/hr [id number] IV Last administered on at 21:27; Start 04/18/18 at 21:00 Fentanyl Citrate (Fentanyl 2ml Vial) 50 mcg PRN Q3HRS PRN IV PAIN SEVERE Last administered on 04/20/18at 08:33; Start 04/19/18 at 19:45 Active Scripts Active Reported Paxil (Paroxetine Hcl) 40 Mg Tablet 40 Mg PO HS Colace (Docusate Sodium) 100 Mg Capsule 100 Mg PO BID Tegretol (Carbamazepine) 200 Mg Tablet 200 Mg PO BID Vitals/I & O Vital Sign - Last 24 Hours 04/19/18 04/19/18 04/19/18 04/19/18 11:56 15:00 16:39 19:00 Temp 98.1 98.1 98.8 98.1 98.1 98.8 Pulse 64 65 65 78 Resp 12 18 16 19 B/P (MAP) 95/76 (82) 110/78 (89) 104/61 (75) 117/75 (89) Pulse Ox 94 97 99 O2 Delivery Room Air Room Air Room Air Room Air 04/19/18 04/19/18 04/19/18 04/19/18 19:53 20:00 20:23 23:00 Temp 99.8 99.8 Pulse 84 Resp 24 25 17 B/P (MAP) 109/74 (86) Pulse Ox 99 98 O2 Delivery Room Air Room Air Room Air 04/19/18 04/19/18 04/20/18 04/20/18 23:17 23:47 04:00 08:33 Temp 98.5 98.5 Pulse 74 Resp 17 19 16 B/P (MAP) 114/67 (83) Pulse Ox 98 98 98 O2 Delivery Room Air Room Air Room Air Room Air Intake and Output 04/19/18 04/19/18 04/20/18 15:00 23:00 07:00 Intake Total 3021 ml Output Total 1450 ml Balance 1571 ml TABATHA WING APRN Apr 20, 2018 10:17
[2018-04-20] MEDS: PROCHLORPERAZINE 10 MG/2 ML VIAL. IV PRN (11:58)
[2018-04-20 12:00] VITALS: BP 111/82
[2018-04-20] MEDS: IV NORMAL SALINE 1000ML BAG 1,000 ML IV SCH ×2 (12:00→20:50)
--- NOTE | 2018-04-20 13:02 | PDOC ---
PROGRESS NOTES Chief Complaint Chief Complaint Mechanical fall with bilateral traumatic cerebral hemorrhages History of epilepsy, did have a brief seizure yesterday Intellectual disability Leukocytosis History of Present Illness History of Present Illness Pt seen and examined in ICU Resting sitting upright in bed. Discussed with failure analysis engineer facility officers at bedside Vitals Vitals Vital Signs Date Time Temp Pulse Resp B/P (MAP) Pulse Ox O2 Delivery O2 Flow Rate FiO2 04/20/18 08:33 16 Room Air 04/20/18 04:00 98.5 74 114/67 (83) 98 98.5 Physical Exam General: Alert, Oriented X3, Cooperative, No acute distress Heart: Regular rate, Normal S1, Normal S2 Lungs: Clear Abdomen: Soft, No tenderness Extremities: No clubbing, No cyanosis Skin: No rashes, No breakdown Labs LABS Laboratory Tests Test 04/20/18 05:10 White Blood Count 11.5 x10^3/uL (4.0-11.0) Red Blood Count 3.91 x10^6/uL (4.30-5.70) Hemoglobin 12.5 g/dL (13.0-17.5) Hematocrit 35.7 % (39.0-53.0) Mean Corpuscular Volume 91 fL (79-100) Mean Corpuscular Hemoglobin 32 pg (25-35) Mean Corpuscular Hemoglobin Concent 35 g/dL (31-37) Red Cell Distribution Width 13.2 % (11.5-14.5) Platelet Count 137 x10^3/uL (140-400) Neutrophils (%) (Auto) 71 % (31-73) Lymphocytes (%) (Auto) 22 % (24-48) Monocytes (%) (Auto) 7 % (0-9) Eosinophils (%) (Auto) 0 % (0-3) Basophils (%) (Auto) 0 % (0-3) Neutrophils # (Auto) 8.2 x10^3uL (1.8-7.7) Lymphocytes # (Auto) 2.5 x10^3/uL (1.0-4.8) Monocytes # (Auto) 0.8 x10^3/uL (0.0-1.1) Eosinophils # (Auto) 0.0 x10^3/uL (0.0-0.7) Basophils # (Auto) 0.0 x10^3/uL (0.0-0.2) Sodium Level 142 mmol/L (136-145) Potassium Level 4.1 mmol/L (3.5-5.1) Chloride Level 108 mmol/L (98-107) Carbon Dioxide Level 25 mmol/L (21-32) Anion Gap 9 (6-14) Blood Urea Nitrogen 8 mg/dL (8-26) Creatinine 0.7 mg/dL (0.7-1.3) Estimated GFR (Cockcroft-Gault) 126.2 Glucose Level 95 mg/dL (70-99) Calcium Level 8.2 mg/dL (8.5-10.1) Review of Systems Review of Systems Pt denies DENNISON, dizziness, change in vision, and SOA. Assessment and Plan Assessmemt and Plan Assessment: Mechanical fall with bilateral traumatic cerebral hemorrhages History of epilepsy, did have a brief seizure yesterday Intellectual disability Leukocytosis Plan: ICU monitoring Monitor labs Appreciate subspecialist input Seizure management Home meds DVT ppx PT/OT Comment Review of Relevant I have reviewed the following items laura (where applicable) has been applied. Labs Laboratory Tests Test 04/18/18 15:00 04/18/18 15:36 04/18/18 20:00 04/19/18 07:10 White Blood Count 8.9 x10^3/uL (4.0-11.0) 13.2 x10^3/uL (4.0-11.0) Red Blood Count 4.56 x10^6/uL (4.30-5.70) 4.19 x10^6/uL (4.30-5.70) Hemoglobin 14.5 g/dL (13.0-17.5) 13.5 g/dL (13.0-17.5) Hematocrit 41.2 % (39.0-53.0) 38.5 % (39.0-53.0) Mean Corpuscular Volume 90 fL (79-100) 92 fL (79-100) Mean Corpuscular Hemoglobin 32 pg (25-35) 32 pg (25-35) Mean Corpuscular Hemoglobin Concent 35 g/dL (31-37) 35 g/dL (31-37) Red Cell Distribution Width 13.2 % (11.5-14.5) 13.6 % (11.5-14.5) Platelet Count 159 x10^3/uL (140-400) 152 x10^3/uL (140-400) Neutrophils (%) (Auto) 70 % (31-73) 74 % (31-73) Lymphocytes (%) (Auto) 24 % (24-48) 15 % (24-48) Monocytes (%) (Auto) 5 % (0-9) 11 % (0-9) Eosinophils (%) (Auto) 0 % (0-3) 0 % (0-3) Basophils (%) (Auto) 1 % (0-3) 0 % (0-3) Neutrophils # (Auto) 6.2 x10^3uL (1.8-7.7) 9.8 x10^3uL (1.8-7.7) Lymphocytes # (Auto) 2.1 x10^3/uL (1.0-4.8) 2.0 x10^3/uL (1.0-4.8) Monocytes # (Auto) 0.5 x10^3/uL (0.0-1.1) 1.4 x10^3/uL (0.0-1.1) Eosinophils # (Auto) 0.0 x10^3/uL (0.0-0.7) 0.0 x10^3/uL (0.0-0.7) Basophils # (Auto) 0.1 x10^3/uL (0.0-0.2) 0.0 x10^3/uL (0.0-0.2) Prothrombin Time 14.2 SEC (11.7-14.0) Prothromb Time International Ratio 1.2 (0.8-1.1) Activated Partial Thromboplast Time 23 SEC (24-38) Sodium Level 142 mmol/L (136-145) 140 mmol/L (136-145) Potassium Level 4.0 mmol/L (3.5-5.1) 3.8 mmol/L (3.5-5.1) Chloride Level 106 mmol/L (98-107) 105 mmol/L (98-107) Carbon Dioxide Level 29 mmol/L (21-32) 29 mmol/L (21-32) Anion Gap 7 (6-14) 6 (6-14) Blood Urea Nitrogen 10 mg/dL (8-26) 10 mg/dL (8-26) Creatinine 0.9 mg/dL (0.7-1.3) 0.8 mg/dL (0.7-1.3) Estimated GFR (Cockcroft-Gault) 94.4 108.2 Glucose Level 119 mg/dL (70-99) 111 mg/dL (70-99) Calcium Level 8.6 mg/dL (8.5-10.1) 8.2 mg/dL (8.5-10.1) Phenytoin (Dilantin) Level 0.5 mcg/mL (10.0-20.0) Phenytoin Last Dose Date 04/18/18 Phenytoin Last Dose Time 0700 Carbamazepine (Tegretol) Level 6.1 mcg/mL (4.0-12.0) Carbamazepine Last Dose Date 04/18/18 Carbamazepine Last Dose Time 0700 Ethyl Alcohol Level < 10 mg/dL (0-10) Urine Collection Type Unknown Urine Color Yellow Urine Clarity Clear Urine pH 8.5 Urine Specific [place] 1.015 Urine Protein Negative mg/dL (NEG-TRACE) Urine Glucose (UA) Negative mg/dL (NEG) Urine Ketones (Stick) Negative mg/dL (NEG) Urine Blood Negative (NEG) Urine Nitrite Negative (NEG) Urine Bilirubin Negative (NEG) Urine Urobilinogen Dipstick 0.2 mg/dL (0.2 mg/dL) Urine Leukocyte Esterase Negative (NEG) Urine RBC 0 /HPF (0-2) Urine WBC 0 /HPF (0-4) Urine Bacteria 0 /HPF (0-FEW) Urine Opiates Screen Neg (NEG) Urine Methadone Screen Neg (NEG) Urine Barbiturates Neg (NEG) Urine Phencyclidine Screen Neg (NEG) Urine Amphetamine/Methamphetamine Neg (NEG) Urine Benzodiazepines Screen Neg (NEG) Urine Cocaine Screen Neg (NEG) Urine Cannabinoids Screen Neg (NEG) Urine Ethyl Alcohol Neg (NEG) Nasal Screen MRSA (PCR) Negative (Negative) Test 04/20/18 05:10 White Blood Count 11.5 x10^3/uL (4.0-11.0) Red Blood Count 3.91 x10^6/uL (4.30-5.70) Hemoglobin 12.5 g/dL (13.0-17.5) Hematocrit 35.7 % (39.0-53.0) Mean Corpuscular Volume 91 fL (79-100) Mean Corpuscular Hemoglobin 32 pg (25-35) Mean Corpuscular Hemoglobin Concent 35 g/dL (31-37) Red Cell Distribution Width 13.2 % (11.5-14.5) Platelet Count 137 x10^3/uL (140-400) Neutrophils (%) (Auto) 71 % (31-73) Lymphocytes (%) (Auto) 22 % (24-48) Monocytes (%) (Auto) 7 % (0-9) Eosinophils (%) (Auto) 0 % (0-3) Basophils (%) (Auto) 0 % (0-3) Neutrophils # (Auto) 8.2 x10^3uL (1.8-7.7) Lymphocytes # (Auto) 2.5 x10^3/uL (1.0-4.8) Monocytes # (Auto) 0.8 x10^3/uL (0.0-1.1) Eosinophils # (Auto) 0.0 x10^3/uL (0.0-0.7) Basophils # (Auto) 0.0 x10^3/uL (0.0-0.2) Sodium Level 142 mmol/L (136-145) Potassium Level 4.1 mmol/L (3.5-5.1) Chloride Level 108 mmol/L (98-107) Carbon Dioxide Level 25 mmol/L (21-32) Anion Gap 9 (6-14) Blood Urea Nitrogen 8 mg/dL (8-26) Creatinine 0.7 mg/dL (0.7-1.3) Estimated GFR (Cockcroft-Gault) 126.2 Glucose Level 95 mg/dL (70-99) Calcium Level 8.2 mg/dL (8.5-10.1) Laboratory Tests Test 04/20/18 05:10 White Blood Count 11.5 x10^3/uL (4.0-11.0) Red Blood Count 3.91 x10^6/uL (4.30-5.70) Hemoglobin 12.5 g/dL (13.0-17.5) Hematocrit 35.7 % (39.0-53.0) Mean Corpuscular Volume 91 fL (79-100) Mean Corpuscular Hemoglobin 32 pg (25-35) Mean Corpuscular Hemoglobin Concent 35 g/dL (31-37) Red Cell Distribution Width 13.2 % (11.5-14.5) Platelet Count 137 x10^3/uL (140-400) Neutrophils (%) (Auto) 71 % (31-73) Lymphocytes (%) (Auto) 22 % (24-48) Monocytes (%) (Auto) 7 % (0-9) Eosinophils (%) (Auto) 0 % (0-3) Basophils (%) (Auto) 0 % (0-3) Neutrophils # (Auto) 8.2 x10^3uL (1.8-7.7) Lymphocytes # (Auto) 2.5 x10^3/uL (1.0-4.8) Monocytes # (Auto) 0.8 x10^3/uL (0.0-1.1) Eosinophils # (Auto) 0.0 x10^3/uL (0.0-0.7) Basophils # (Auto) 0.0 x10^3/uL (0.0-0.2) Sodium Level 142 mmol/L (136-145) Potassium Level 4.1 mmol/L (3.5-5.1) Chloride Level 108 mmol/L (98-107) Carbon Dioxide Level 25 mmol/L (21-32) Anion Gap 9 (6-14) Blood Urea Nitrogen 8 mg/dL (8-26) Creatinine 0.7 mg/dL (0.7-1.3) Estimated GFR (Cockcroft-Gault) 126.2 Glucose Level 95 mg/dL (70-99) Calcium Level 8.2 mg/dL (8.5-10.1) Medications Current Medications Ringer's Solution 1,000 ml @ 75 mls/hr 1X ONCE IV Last administered on at 16:43; Start 04/18/18 at 16:15; Stop 04/19/18 at 05:34; Status DC Levetiracetam 1000 mg/Dextrose 110 ml @ 440 mls/hr 1X ONCE IV Last administered on 04/18/18at 16:43; Start 04/18/18 at 16:15; Stop 04/18/18 at 16 :29; Status DC Ondansetron HCl (Zofran) 8 mg 1X ONCE IM ; Start 04/18/18 at 16:15; Stop at 16:16; Status DC Ondansetron HCl (Zofran) 4 mg PRN Q8HRS PRN IV NAUSEA/VOMITING; Start at 16:15; Stop 04/18/18 at 19:11; Status DC Fentanyl Citrate (Fentanyl 2ml Vial) 50 mcg PRN Q1HR PRN IV PAIN Last administered on 04/19/18at 08:33; Start 04/18/18 at 16:15; Stop 04/19/18 at 16 :14; Status DC Ondansetron HCl (Zofran) 8 mg 1X ONCE IV Last administered on 04/18/18at 16:00 ; Start 04/18/18 at 16:30; Stop 04/18/18 at 16:31; Status DC Levetiracetam 500 mg/Dextrose 105 ml @ 420 mls/hr Q12HR IV Last administered on 04/20/18at 08:36; Start 04/18/18 at 19:00 Prochlorperazine Edisylate (Compazine) 5 mg PRN Q4HRS PRN IV NAUSEA/VOMITING Last administered on 04/20/18at 11:58; Start 04/18/18 at 19:15 Sodium Chloride 1,000 ml @ 80 mls/hr [id number] IV Last administered on at 12:00; Start 04/18/18 at 21:00 Fentanyl Citrate (Fentanyl 2ml Vial) 50 mcg PRN Q3HRS PRN IV PAIN SEVERE Last administered on 04/20/18at 08:33; Start 04/19/18 at 19:45 Acetaminophen/ Hydrocodone Bitart (Lortab 5/325) 1 tab PRN Q4HRS PRN PO PAIN; Start 04/20/18 at 10:15 Acetaminophen/ Hydrocodone Bitart (Lortab 5/325) 2 tab PRN Q4HRS PRN PO PAIN; Start 04/20/18 at 10:15 Active Scripts Active Reported Paxil (Paroxetine Hcl) 40 Mg Tablet 40 Mg PO HS Colace (Docusate Sodium) 100 Mg Capsule 100 Mg PO BID Tegretol (Carbamazepine) 200 Mg Tablet 200 Mg PO BID Vitals/I & O Vital Sign - Last 24 Hours 04/19/18 04/19/18 04/19/18 04/19/18 15:00 16:39 19:00 19:53 Temp 98.1 98.8 98.1 98.8 Pulse 65 65 78 Resp 18 16 19 24 B/P (MAP) 110/78 (89) 104/61 (75) 117/75 (89) Pulse Ox 97 99 99 O2 Delivery Room Air Room Air Room Air Room Air 04/19/18 04/19/18 04/19/18 04/19/18 20:00 20:23 23:00 23:17 Temp 99.8 99.8 Pulse 84 Resp 25 17 17 B/P (MAP) 109/74 (86) Pulse Ox 98 98 O2 Delivery Room Air Room Air Room Air 04/19/18 04/20/18 04/20/18 23:47 04:00 08:33 Temp 98.5 98.5 Pulse 74 Resp 19 16 B/P (MAP) 114/67 (83) Pulse Ox 98 98 O2 Delivery Room Air Room Air Room Air Intake and Output 04/19/18 04/19/18 04/20/18 15:00 23:00 07:00 Intake Total 3021 ml Output Total 1450 ml Balance 1571 ml VIVIAN OLMEDO III DO Apr 20, 2018 13:02
--- NOTE | 2018-04-20 15:46 | PDOC ---
PROGRESS NOTES Assessment Mechanical fall with bilateral traumatic cerebral hemorrhages, improving History of epilepsy, did have a brief seizure yesterday Intellectual disability Plan I resumed his home meds including the carbamazepine, note he had a therapeutic level on admission Discontinue IV levetiracetam Rehabilitation modalities. Subjective Denies headache Objective Vital Signs Date Time Temp Pulse Resp B/P (MAP) Pulse Ox O2 Delivery O2 Flow Rate FiO2 04/20/18 12:00 88 18 111/82 (92) 97 Room Air 04/20/18 04:00 98.5 98.5 Intake and Output 04/20/18 07:00 Intake Total 3021 ml Output Total 1450 ml Balance 1571 ml Intake Oral 500 ml IV Total 2521 ml Output Urine Total 1450 ml # Voids 2 PHYSICAL EXAM Alert. Oriented to time, place and person, do suspect some intellectual disability though. PERRL. EOMI. CN: no focal findings. Muscle tone: normal. Muscle strength: 4/5 DTR: 2+ Plantar reflex:'s or Gait: A little bit unsteady. Sensory exam: no abnormal findings. No cerebellar signs elicited. Review of Relevant I have reviewed the following items laura (where applicable) has been applied. Labs Laboratory Tests Test 04/18/18 20:00 04/19/18 07:10 04/20/18 05:10 Nasal Screen MRSA (PCR) Negative (Negative) White Blood Count 13.2 x10^3/uL (4.0-11.0) 11.5 x10^3/uL (4.0-11.0) Red Blood Count 4.19 x10^6/uL (4.30-5.70) 3.91 x10^6/uL (4.30-5.70) Hemoglobin 13.5 g/dL (13.0-17.5) 12.5 g/dL (13.0-17.5) Hematocrit 38.5 % (39.0-53.0) 35.7 % (39.0-53.0) Mean Corpuscular Volume 92 fL (79-100) 91 fL (79-100) Mean Corpuscular Hemoglobin 32 pg (25-35) 32 pg (25-35) Mean Corpuscular Hemoglobin Concent 35 g/dL (31-37) 35 g/dL (31-37) Red Cell Distribution Width 13.6 % (11.5-14.5) 13.2 % (11.5-14.5) Platelet Count 152 x10^3/uL (140-400) 137 x10^3/uL (140-400) Neutrophils (%) (Auto) 74 % (31-73) 71 % (31-73) Lymphocytes (%) (Auto) 15 % (24-48) 22 % (24-48) Monocytes (%) (Auto) 11 % (0-9) 7 % (0-9) Eosinophils (%) (Auto) 0 % (0-3) 0 % (0-3) Basophils (%) (Auto) 0 % (0-3) 0 % (0-3) Neutrophils # (Auto) 9.8 x10^3uL (1.8-7.7) 8.2 x10^3uL (1.8-7.7) Lymphocytes # (Auto) 2.0 x10^3/uL (1.0-4.8) 2.5 x10^3/uL (1.0-4.8) Monocytes # (Auto) 1.4 x10^3/uL (0.0-1.1) 0.8 x10^3/uL (0.0-1.1) Eosinophils # (Auto) 0.0 x10^3/uL (0.0-0.7) 0.0 x10^3/uL (0.0-0.7) Basophils # (Auto) 0.0 x10^3/uL (0.0-0.2) 0.0 x10^3/uL (0.0-0.2) Sodium Level 140 mmol/L (136-145) 142 mmol/L (136-145) Potassium Level 3.8 mmol/L (3.5-5.1) 4.1 mmol/L (3.5-5.1) Chloride Level 105 mmol/L (98-107) 108 mmol/L (98-107) Carbon Dioxide Level 29 mmol/L (21-32) 25 mmol/L (21-32) Anion Gap 6 (6-14) 9 (6-14) Blood Urea Nitrogen 10 mg/dL (8-26) 8 mg/dL (8-26) Creatinine 0.8 mg/dL (0.7-1.3) 0.7 mg/dL (0.7-1.3) Estimated GFR (Cockcroft-Gault) 108.2 126.2 Glucose Level 111 mg/dL (70-99) 95 mg/dL (70-99) Calcium Level 8.2 mg/dL (8.5-10.1) 8.2 mg/dL (8.5-10.1) Laboratory Tests Test 04/20/18 05:10 White Blood Count 11.5 x10^3/uL (4.0-11.0) Red Blood Count 3.91 x10^6/uL (4.30-5.70) Hemoglobin 12.5 g/dL (13.0-17.5) Hematocrit 35.7 % (39.0-53.0) Mean Corpuscular Volume 91 fL (79-100) Mean Corpuscular Hemoglobin 32 pg (25-35) Mean Corpuscular Hemoglobin Concent 35 g/dL (31-37) Red Cell Distribution Width 13.2 % (11.5-14.5) Platelet Count 137 x10^3/uL (140-400) Neutrophils (%) (Auto) 71 % (31-73) Lymphocytes (%) (Auto) 22 % (24-48) Monocytes (%) (Auto) 7 % (0-9) Eosinophils (%) (Auto) 0 % (0-3) Basophils (%) (Auto) 0 % (0-3) Neutrophils # (Auto) 8.2 x10^3uL (1.8-7.7) Lymphocytes # (Auto) 2.5 x10^3/uL (1.0-4.8) Monocytes # (Auto) 0.8 x10^3/uL (0.0-1.1) Eosinophils # (Auto) 0.0 x10^3/uL (0.0-0.7) Basophils # (Auto) 0.0 x10^3/uL (0.0-0.2) Sodium Level 142 mmol/L (136-145) Potassium Level 4.1 mmol/L (3.5-5.1) Chloride Level 108 mmol/L (98-107) Carbon Dioxide Level 25 mmol/L (21-32) Anion Gap 9 (6-14) Blood Urea Nitrogen 8 mg/dL (8-26) Creatinine 0.7 mg/dL (0.7-1.3) Estimated GFR (Cockcroft-Gault) 126.2 Glucose Level 95 mg/dL (70-99) Calcium Level 8.2 mg/dL (8.5-10.1) Medications Current Medications Ringer's Solution 1,000 ml @ 75 mls/hr 1X ONCE IV Last administered on at 16:43; Start 04/18/18 at 16:15; Stop 04/19/18 at 05:34; Status DC Levetiracetam 1000 mg/Dextrose 110 ml @ 440 mls/hr 1X ONCE IV Last administered on 04/18/18at 16:43; Start 04/18/18 at 16:15; Stop 04/18/18 at 16 :29; Status DC Ondansetron HCl (Zofran) 8 mg 1X ONCE IM ; Start 04/18/18 at 16:15; Stop at 16:16; Status DC Ondansetron HCl (Zofran) 4 mg PRN Q8HRS PRN IV NAUSEA/VOMITING; Start at 16:15; Stop 04/18/18 at 19:11; Status DC Fentanyl Citrate (Fentanyl 2ml Vial) 50 mcg PRN Q1HR PRN IV PAIN Last administered on 04/19/18at 08:33; Start 04/18/18 at 16:15; Stop 04/19/18 at 16 :14; Status DC Ondansetron HCl (Zofran) 8 mg 1X ONCE IV Last administered on 04/18/18at 16:00 ; Start 04/18/18 at 16:30; Stop 04/18/18 at 16:31; Status DC Levetiracetam 500 mg/Dextrose 105 ml @ 420 mls/hr Q12HR IV Last administered on 04/20/18at 08:36; Start 04/18/18 at 19:00 Prochlorperazine Edisylate (Compazine) 5 mg PRN Q4HRS PRN IV NAUSEA/VOMITING Last administered on 04/20/18at 11:58; Start 04/18/18 at 19:15 Sodium Chloride 1,000 ml @ 80 mls/hr [id number] IV Last administered on at 12:00; Start 04/18/18 at 21:00 Fentanyl Citrate (Fentanyl 2ml Vial) 50 mcg PRN Q3HRS PRN IV PAIN SEVERE Last administered on 04/20/18at 08:33; Start 04/19/18 at 19:45 Acetaminophen/ Hydrocodone Bitart (Lortab 5/325) 1 tab PRN Q4HRS PRN PO PAIN; Start 04/20/18 at 10:15 Acetaminophen/ Hydrocodone Bitart (Lortab 5/325) 2 tab PRN Q4HRS PRN PO PAIN; Start 04/20/18 at 10:15 Active Scripts Active Reported Paxil (Paroxetine Hcl) 40 Mg Tablet 40 Mg PO HS Colace (Docusate Sodium) 100 Mg Capsule 100 Mg PO BID Tegretol (Carbamazepine) 200 Mg Tablet 200 Mg PO BID Vitals/I & O Vital Sign - Last 24 Hours 04/19/18 04/19/18 04/19/18 04/19/18 16:39 19:00 19:53 20:00 Temp 98.1 98.8 98.1 98.8 Pulse 65 78 Resp 16 19 24 B/P (MAP) 104/61 (75) 117/75 (89) Pulse Ox 99 99 O2 Delivery Room Air Room Air Room Air Room Air 04/19/18 04/19/18 04/19/18 04/19/18 20:23 23:00 23:17 23:47 Temp 99.8 99.8 Pulse 84 Resp 25 17 17 B/P (MAP) 109/74 (86) Pulse Ox 98 98 98 O2 Delivery Room Air Room Air Room Air 04/20/18 04/20/18 04/20/18 04/20/18 04:00 08:00 08:33 12:00 Temp 98.5 98.5 Pulse 74 60 88 Resp 19 18 16 18 B/P (MAP) 114/67 (83) 111/76 (88) 111/82 (92) Pulse Ox 98 97 97 O2 Delivery Room Air Room Air Room Air Room Air Intake and Output 04/19/18 04/19/18 04/20/18 15:00 23:00 07:00 Intake Total 3021 ml Output Total 1450 ml Balance [address] head yesterday: Small right-sided, temporal extra-axial hemorrhage is grossly unchanged. Multifocal supratentorial subarachnoid hemorrhage most prominently involving the left frontal and temporal lobes is less prominent as blood products have decreased in attenuation. No new acute mass effect or midline shift is identified. The ventricles and basilar cisterns have a stable configuration. There is a probable nondisplaced fracture involving the right parietal bone extending to the squamous suture. IMPRESSION: 1. Stable small right temporal extra-axial hemorrhage 2. Decreasing with supratentorial subarachnoid hemorrhage 3. Probable nondisplaced fracture involving the right parietal bone extending to the squamous suture DAMARIS BAUTISTA MD Apr 20, 2018 15:46
[2018-04-20 16:00] VITALS: BP 90/50
[2018-04-20] MEDS: HYDROcodone/APAP 5/325MG 1 TAB TABLET PO PRN ×2 (17:06→20:49)
[2018-04-20 19:00] VITALS: BP 126/83
[2018-04-20] MEDS ORDERED: ONDANSETRON PF 4 MG/2 ML VIAL. IV PRN (20:15)
[2018-04-20] MEDS: carBAMazepine 200 MG TABLET PO SCH (20:49)
[2018-04-20] MEDS: DOCUSATE SODIUM 100 MG CAPSULE. PO SCH (20:49)
[2018-04-20 23:00] VITALS: BP 134/80
[2018-04-21 03:00] VITALS: BP 129/80
[2018-04-21 07:00] VITALS: BP 124/82
[2018-04-21 07:21] LABS: BASO % 0 % (0-3); EOS # 0.1 x10^3/uL (0.0-0.7); EOS % 1 % (0-3); HEMATOCRIT 37.6 % (39.0-53.0); HEMOGLOBIN 13.3 g/dL (13.0-17.5); LYMPH # 2.8 x10^3/uL (1.0-4.8); LYMPH % 32 % (24-48); MEAN CORPUSCULAR HEMOGLOBIN 32 pg (25-35); MEAN CORPUSCULAR HGB CONC 36 g/dL (31-37); MEAN CORPUSCULAR VOLUME 91 fL (79-100); MONO # 0.8 x10^3/uL (0.0-1.1); MONO % 9 % (0-9); NEUT # 5.1 x10^3uL (1.8-7.7); NEUT % 59 % (31-73); PLATELET COUNT 145 x10^3/uL (140-400); RED BLOOD COUNT 4.13 x10^6/uL (4.30-5.70); RED CELL DISTRIBUTION WIDTH 13.3 % (11.5-14.5); WHITE BLOOD COUNT 8.8 x10^3/uL (4.0-11.0)
[2018-04-21 07:32] LABS: CALCIUM 8.2 mg/dL (8.5-10.1); CREATININE 0.8 mg/dL (0.7-1.3); GFR 108.2; POTASSIUM 3.7 mmol/L (3.5-5.1)
--- NOTE | 2018-04-21 07:41 | PDOC ---
PROGRESS NOTES Chief Complaint Chief Complaint Mechanical fall with bilateral traumatic cerebral hemorrhages History of epilepsy, did have a brief seizure on admission Parietal bone fracture? Intellectual disability Leukocytosis History of Present Illness History of Present Illness Pt seen and examined in medical wards Resting sitting upright in bed. Glasses in place Discussed with variety performer facility officers at bedside C/o mild headache improved with tylenol at this time from 11/27 to 07/30. No further seizure activity. Had BM overnight, ambulated with PT, was a little unsteady A/P: Mechanical fall with bilateral traumatic cerebral hemorrhages, improving History of epilepsy, did have a brief seizure on 04/19/18, therapeutic carbamazepine level on admit Intellectual disability Ok for d/c from medicine perspective, have d/w neurology Vitals Vitals Vital Signs Date Time Temp Pulse Resp B/P (MAP) Pulse Ox O2 Delivery O2 Flow Rate FiO2 04/21/18 03:00 98.2 64 18 129/80 (96) 97 Room Air 98.2 Physical Exam General: Alert, Oriented X3, Cooperative, No acute distress Heart: Regular rate, Normal S1, Normal S2 Lungs: Clear Abdomen: Soft, No tenderness Extremities: No clubbing, No cyanosis Skin: No rashes, No breakdown Labs LABS Laboratory Tests Test 04/21/18 06:20 White Blood Count 8.8 x10^3/uL (4.0-11.0) Red Blood Count 4.13 x10^6/uL (4.30-5.70) Hemoglobin 13.3 g/dL (13.0-17.5) Hematocrit 37.6 % (39.0-53.0) Mean Corpuscular Volume 91 fL (79-100) Mean Corpuscular Hemoglobin 32 pg (25-35) Mean Corpuscular Hemoglobin Concent 36 g/dL (31-37) Red Cell Distribution Width 13.3 % (11.5-14.5) Platelet Count 145 x10^3/uL (140-400) Neutrophils (%) (Auto) 59 % (31-73) Lymphocytes (%) (Auto) 32 % (24-48) Monocytes (%) (Auto) 9 % (0-9) Eosinophils (%) (Auto) 1 % (0-3) Basophils (%) (Auto) 0 % (0-3) Neutrophils # (Auto) 5.1 x10^3uL (1.8-7.7) Lymphocytes # (Auto) 2.8 x10^3/uL (1.0-4.8) Monocytes # (Auto) 0.8 x10^3/uL (0.0-1.1) Eosinophils # (Auto) 0.1 x10^3/uL (0.0-0.7) Basophils # (Auto) 0.0 x10^3/uL (0.0-0.2) Sodium Level 144 mmol/L (136-145) Potassium Level 3.7 mmol/L (3.5-5.1) Chloride Level 109 mmol/L (98-107) Carbon Dioxide Level 30 mmol/L (21-32) Anion Gap 5 (6-14) Blood Urea Nitrogen 8 mg/dL (8-26) Creatinine 0.8 mg/dL (0.7-1.3) Estimated GFR (Cockcroft-Gault) 108.2 Glucose Level 98 mg/dL (70-99) Calcium Level 8.2 mg/dL (8.5-10.1) Comment Review of Relevant I have reviewed the following items laura (where applicable) has been applied. Labs Laboratory Tests Test 04/20/18 05:10 04/21/18 06:20 White Blood Count 11.5 x10^3/uL (4.0-11.0) 8.8 x10^3/uL (4.0-11.0) Red Blood Count 3.91 x10^6/uL (4.30-5.70) 4.13 x10^6/uL (4.30-5.70) Hemoglobin 12.5 g/dL (13.0-17.5) 13.3 g/dL (13.0-17.5) Hematocrit 35.7 % (39.0-53.0) 37.6 % (39.0-53.0) Mean Corpuscular Volume 91 fL (79-100) 91 fL (79-100) Mean Corpuscular Hemoglobin 32 pg (25-35) 32 pg (25-35) Mean Corpuscular Hemoglobin Concent 35 g/dL (31-37) 36 g/dL (31-37) Red Cell Distribution Width 13.2 % (11.5-14.5) 13.3 % (11.5-14.5) Platelet Count 137 x10^3/uL (140-400) 145 x10^3/uL (140-400) Neutrophils (%) (Auto) 71 % (31-73) 59 % (31-73) Lymphocytes (%) (Auto) 22 % (24-48) 32 % (24-48) Monocytes (%) (Auto) 7 % (0-9) 9 % (0-9) Eosinophils (%) (Auto) 0 % (0-3) 1 % (0-3) Basophils (%) (Auto) 0 % (0-3) 0 % (0-3) Neutrophils # (Auto) 8.2 x10^3uL (1.8-7.7) 5.1 x10^3uL (1.8-7.7) Lymphocytes # (Auto) 2.5 x10^3/uL (1.0-4.8) 2.8 x10^3/uL (1.0-4.8) Monocytes # (Auto) 0.8 x10^3/uL (0.0-1.1) 0.8 x10^3/uL (0.0-1.1) Eosinophils # (Auto) 0.0 x10^3/uL (0.0-0.7) 0.1 x10^3/uL (0.0-0.7) Basophils # (Auto) 0.0 x10^3/uL (0.0-0.2) 0.0 x10^3/uL (0.0-0.2) Sodium Level 142 mmol/L (136-145) 144 mmol/L (136-145) Potassium Level 4.1 mmol/L (3.5-5.1) 3.7 mmol/L (3.5-5.1) Chloride Level 108 mmol/L (98-107) 109 mmol/L (98-107) Carbon Dioxide Level 25 mmol/L (21-32) 30 mmol/L (21-32) Anion Gap 9 (6-14) 5 (6-14) Blood Urea Nitrogen 8 mg/dL (8-26) 8 mg/dL (8-26) Creatinine 0.7 mg/dL (0.7-1.3) 0.8 mg/dL (0.7-1.3) Estimated GFR (Cockcroft-Gault) 126.2 108.2 Glucose Level 95 mg/dL (70-99) 98 mg/dL (70-99) Calcium Level 8.2 mg/dL (8.5-10.1) 8.2 mg/dL (8.5-10.1) Laboratory Tests Test 04/21/18 06:20 White Blood Count 8.8 x10^3/uL (4.0-11.0) Red Blood Count 4.13 x10^6/uL (4.30-5.70) Hemoglobin 13.3 g/dL (13.0-17.5) Hematocrit 37.6 % (39.0-53.0) Mean Corpuscular Volume 91 fL (79-100) Mean Corpuscular Hemoglobin 32 pg (25-35) Mean Corpuscular Hemoglobin Concent 36 g/dL (31-37) Red Cell Distribution Width 13.3 % (11.5-14.5) Platelet Count 145 x10^3/uL (140-400) Neutrophils (%) (Auto) 59 % (31-73) Lymphocytes (%) (Auto) 32 % (24-48) Monocytes (%) (Auto) 9 % (0-9) Eosinophils (%) (Auto) 1 % (0-3) Basophils (%) (Auto) 0 % (0-3) Neutrophils # (Auto) 5.1 x10^3uL (1.8-7.7) Lymphocytes # (Auto) 2.8 x10^3/uL (1.0-4.8) Monocytes # (Auto) 0.8 x10^3/uL (0.0-1.1) Eosinophils # (Auto) 0.1 x10^3/uL (0.0-0.7) Basophils # (Auto) 0.0 x10^3/uL (0.0-0.2) Sodium Level 144 mmol/L (136-145) Potassium Level 3.7 mmol/L (3.5-5.1) Chloride Level 109 mmol/L (98-107) Carbon Dioxide Level 30 mmol/L (21-32) Anion Gap 5 (6-14) Blood Urea Nitrogen 8 mg/dL (8-26) Creatinine 0.8 mg/dL (0.7-1.3) Estimated GFR (Cockcroft-Gault) 108.2 Glucose Level 98 mg/dL (70-99) Calcium Level 8.2 mg/dL (8.5-10.1) Medications Current Medications Ringer's Solution 1,000 ml @ 75 mls/hr 1X ONCE IV Last administered on at 16:43; Start 04/18/18 at 16:15; Stop 04/19/18 at 05:34; Status DC Levetiracetam 1000 mg/Dextrose 110 ml @ 440 mls/hr 1X ONCE IV Last administered on 04/18/18at 16:43; Start 04/18/18 at 16:15; Stop 04/18/18 at 16 :29; Status DC Ondansetron HCl (Zofran) 8 mg 1X ONCE IM ; Start 04/18/18 at 16:15; Stop at 16:16; Status DC Ondansetron HCl (Zofran) 4 mg PRN Q8HRS PRN IV NAUSEA/VOMITING; Start at 16:15; Stop 04/18/18 at 19:11; Status DC Fentanyl Citrate (Fentanyl 2ml Vial) 50 mcg PRN Q1HR PRN IV PAIN Last administered on 04/19/18at 08:33; Start 04/18/18 at 16:15; Stop 04/19/18 at 16 :14; Status DC Ondansetron HCl (Zofran) 8 mg 1X ONCE IV Last administered on 04/18/18at 16:00 ; Start 04/18/18 at 16:30; Stop 04/18/18 at 16:31; Status DC Levetiracetam 500 mg/Dextrose 105 ml @ 420 mls/hr Q12HR IV Last administered on 04/20/18at 08:36; Start 04/18/18 at 19:00; Stop 04/20/18 at 15:43; Status DC Prochlorperazine Edisylate (Compazine) 5 mg PRN Q4HRS PRN IV NAUSEA/VOMITING Last administered on 04/20/18at 11:58; Start 04/18/18 at 19:15 Sodium Chloride 1,000 ml @ 80 mls/hr [id number] IV Last administered on at 20:50; Start 04/18/18 at 21:00 Fentanyl Citrate (Fentanyl 2ml Vial) 50 mcg PRN Q3HRS PRN IV PAIN SEVERE Last administered on 04/20/18at 08:33; Start 04/19/18 at 19:45 Acetaminophen/ Hydrocodone Bitart (Lortab 5/325) 1 tab PRN Q4HRS PRN PO PAIN Last administered on 04/20/18at 20:49; Start 04/20/18 at 10:15 Acetaminophen/ Hydrocodone Bitart (Lortab 5/325) 2 tab PRN Q4HRS PRN PO PAIN; Start 04/20/18 at 10:15 Carbamazepine (TEGretol) 200 mg BID PO Last administered on 04/20/18at 20:49; Start 04/20/18 at 21:00 Docusate Sodium (Colace) 100 mg BID PO Last administered on 04/20/18at 20:49; Start 04/20/18 at 21:00 Paroxetine HCl (Paxil) 40 mg DAILY PO ; Start 04/21/18 at 09:00 Ondansetron HCl (Zofran) 4 mg PRN Q6HRS PRN IV NAUSEA/VOMITING Last administered on 04/20/18at 20:49; Start 04/20/18 at 20:15 Active Scripts Active Reported Paxil (Paroxetine Hcl) 40 Mg Tablet 40 Mg PO HS Colace (Docusate Sodium) 100 Mg Capsule 100 Mg PO BID Tegretol (Carbamazepine) 200 Mg Tablet 200 Mg PO BID Vitals/I & O Vital Sign - Last 24 Hours 04/20/18 04/20/18 04/20/18 04/20/18 08:00 08:00 08:01 08:33 Temp 98.6 98.6 Pulse 60 Resp 18 16 B/P (MAP) 111/76 (88) Pulse Ox 97 O2 Delivery Room Air Room Air Room Air 04/20/18 04/20/18 04/20/18 04/20/18 09:03 12:00 12:01 16:00 Temp 98.1 98.1 Pulse 88 90 Resp 16 18 18 B/P (MAP) 111/82 (92) 90/50 (63) Pulse Ox 97 97 O2 Delivery Room Air Room Air Room Air 04/20/18 04/20/18 04/20/18 04/20/18 17:06 19:00 20:00 20:49 Temp 98.6 98.6 Pulse 67 Resp 16 18 B/P (MAP) 126/83 (97) Pulse Ox 97 O2 Delivery Room Air Room Air Room Air Room Air 04/20/18 04/20/18 04/21/18 21:50 23:00 03:00 Temp 98.6 98.2 98.6 98.2 Pulse 70 64 Resp 18 18 B/P (MAP) 134/80 (98) 129/80 (96) Pulse Ox 98 97 O2 Delivery Room Air Room Air Room Air Intake and Output 04/20/18 04/20/18 04/21/18 15:00 23:00 07:00 Intake Total 600 ml 1100 ml Output Total 320 ml Balance 280 ml 1100 ml ADIN CASTILLO MD Apr 21, 2018 07:41
[2018-04-21] MEDS: carBAMazepine 200 MG TABLET PO SCH (08:52)
[2018-04-21] MEDS: DOCUSATE SODIUM 100 MG CAPSULE. PO SCH (08:52)
[2018-04-21] MEDS: HYDROcodone/APAP 5/325MG 1 TAB TABLET PO PRN (08:53)
[2018-04-21] MEDS ORDERED: PARoxetine 20 MG TABLET PO SCH (09:00)
--- NOTE | 2018-04-21 09:11 | PDOC ---
PROGRESS NOTES Assessment Mechanical fall with bilateral traumatic cerebral hemorrhages, improving History of epilepsy, did have a brief seizure with the fall, none since hospitalized Intellectual disability Plan Carbamazepine, had a therapeutic level on admission Rehabilitation modalities. Okay for me for discharge If he remains clinically stable, no need for repeat imaging studies of the head , defer to neurosurgery, though Follow-up with neurology as needed. Subjective Denies headache, willing to leave. Objective Vital Signs Date Time Temp Pulse Resp B/P (MAP) Pulse Ox O2 Delivery O2 Flow Rate FiO2 04/21/18 08:53 16 99 Room Air 04/21/18 07:00 97.9 62 124/82 (96) 97.9 Intake and Output 04/21/18 07:00 Intake Total 1700 ml Output Total 320 ml Balance 1380 ml Intake Oral 500 ml IV Total 1200 ml Output Urine Total 320 ml # Voids 2 # Bowel Movements 1 PHYSICAL EXAM Alert. Oriented to time, place and person, intellectual disability PERRL. EOMI. CN: no focal findings. Muscle tone: normal. Muscle strength: 4/5 DTR: 2+ Plantar reflex:'s or Gait: not tested. Sensory exam: no abnormal findings. No cerebellar signs elicited. Review of Relevant I have reviewed the following items laura (where applicable) has been applied. Labs Laboratory Tests Test 04/20/18 05:10 04/21/18 06:20 White Blood Count 11.5 x10^3/uL (4.0-11.0) 8.8 x10^3/uL (4.0-11.0) Red Blood Count 3.91 x10^6/uL (4.30-5.70) 4.13 x10^6/uL (4.30-5.70) Hemoglobin 12.5 g/dL (13.0-17.5) 13.3 g/dL (13.0-17.5) Hematocrit 35.7 % (39.0-53.0) 37.6 % (39.0-53.0) Mean Corpuscular Volume 91 fL (79-100) 91 fL (79-100) Mean Corpuscular Hemoglobin 32 pg (25-35) 32 pg (25-35) Mean Corpuscular Hemoglobin Concent 35 g/dL (31-37) 36 g/dL (31-37) Red Cell Distribution Width 13.2 % (11.5-14.5) 13.3 % (11.5-14.5) Platelet Count 137 x10^3/uL (140-400) 145 x10^3/uL (140-400) Neutrophils (%) (Auto) 71 % (31-73) 59 % (31-73) Lymphocytes (%) (Auto) 22 % (24-48) 32 % (24-48) Monocytes (%) (Auto) 7 % (0-9) 9 % (0-9) Eosinophils (%) (Auto) 0 % (0-3) 1 % (0-3) Basophils (%) (Auto) 0 % (0-3) 0 % (0-3) Neutrophils # (Auto) 8.2 x10^3uL (1.8-7.7) 5.1 x10^3uL (1.8-7.7) Lymphocytes # (Auto) 2.5 x10^3/uL (1.0-4.8) 2.8 x10^3/uL (1.0-4.8) Monocytes # (Auto) 0.8 x10^3/uL (0.0-1.1) 0.8 x10^3/uL (0.0-1.1) Eosinophils # (Auto) 0.0 x10^3/uL (0.0-0.7) 0.1 x10^3/uL (0.0-0.7) Basophils # (Auto) 0.0 x10^3/uL (0.0-0.2) 0.0 x10^3/uL (0.0-0.2) Sodium Level 142 mmol/L (136-145) 144 mmol/L (136-145) Potassium Level 4.1 mmol/L (3.5-5.1) 3.7 mmol/L (3.5-5.1) Chloride Level 108 mmol/L (98-107) 109 mmol/L (98-107) Carbon Dioxide Level 25 mmol/L (21-32) 30 mmol/L (21-32) Anion Gap 9 (6-14) 5 (6-14) Blood Urea Nitrogen 8 mg/dL (8-26) 8 mg/dL (8-26) Creatinine 0.7 mg/dL (0.7-1.3) 0.8 mg/dL (0.7-1.3) Estimated GFR (Cockcroft-Gault) 126.2 108.2 Glucose Level 95 mg/dL (70-99) 98 mg/dL (70-99) Calcium Level 8.2 mg/dL (8.5-10.1) 8.2 mg/dL (8.5-10.1) Laboratory Tests Test 04/21/18 06:20 White Blood Count 8.8 x10^3/uL (4.0-11.0) Red Blood Count 4.13 x10^6/uL (4.30-5.70) Hemoglobin 13.3 g/dL (13.0-17.5) Hematocrit 37.6 % (39.0-53.0) Mean Corpuscular Volume 91 fL (79-100) Mean Corpuscular Hemoglobin 32 pg (25-35) Mean Corpuscular Hemoglobin Concent 36 g/dL (31-37) Red Cell Distribution Width 13.3 % (11.5-14.5) Platelet Count 145 x10^3/uL (140-400) Neutrophils (%) (Auto) 59 % (31-73) Lymphocytes (%) (Auto) 32 % (24-48) Monocytes (%) (Auto) 9 % (0-9) Eosinophils (%) (Auto) 1 % (0-3) Basophils (%) (Auto) 0 % (0-3) Neutrophils # (Auto) 5.1 x10^3uL (1.8-7.7) Lymphocytes # (Auto) 2.8 x10^3/uL (1.0-4.8) Monocytes # (Auto) 0.8 x10^3/uL (0.0-1.1) Eosinophils # (Auto) 0.1 x10^3/uL (0.0-0.7) Basophils # (Auto) 0.0 x10^3/uL (0.0-0.2) Sodium Level 144 mmol/L (136-145) Potassium Level 3.7 mmol/L (3.5-5.1) Chloride Level 109 mmol/L (98-107) Carbon Dioxide Level 30 mmol/L (21-32) Anion Gap 5 (6-14) Blood Urea Nitrogen 8 mg/dL (8-26) Creatinine 0.8 mg/dL (0.7-1.3) Estimated GFR (Cockcroft-Gault) 108.2 Glucose Level 98 mg/dL (70-99) Calcium Level 8.2 mg/dL (8.5-10.1) Medications Current Medications Ringer's Solution 1,000 ml @ 75 mls/hr 1X ONCE IV Last administered on at 16:43; Start 04/18/18 at 16:15; Stop 04/19/18 at 05:34; Status DC Levetiracetam 1000 mg/Dextrose 110 ml @ 440 mls/hr 1X ONCE IV Last administered on 04/18/18at 16:43; Start 04/18/18 at 16:15; Stop 04/18/18 at 16 :29; Status DC Ondansetron HCl (Zofran) 8 mg 1X ONCE IM ; Start 04/18/18 at 16:15; Stop at 16:16; Status DC Ondansetron HCl (Zofran) 4 mg PRN Q8HRS PRN IV NAUSEA/VOMITING; Start at 16:15; Stop 04/18/18 at 19:11; Status DC Fentanyl Citrate (Fentanyl 2ml Vial) 50 mcg PRN Q1HR PRN IV PAIN Last administered on 04/19/18at 08:33; Start 04/18/18 at 16:15; Stop 04/19/18 at 16 :14; Status DC Ondansetron HCl (Zofran) 8 mg 1X ONCE IV Last administered on 04/18/18at 16:00 ; Start 04/18/18 at 16:30; Stop 04/18/18 at 16:31; Status DC Levetiracetam 500 mg/Dextrose 105 ml @ 420 mls/hr Q12HR IV Last administered on 04/20/18at 08:36; Start 04/18/18 at 19:00; Stop 04/20/18 at 15:43; Status DC Prochlorperazine Edisylate (Compazine) 5 mg PRN Q4HRS PRN IV NAUSEA/VOMITING Last administered on 04/20/18at 11:58; Start 04/18/18 at 19:15 Sodium Chloride 1,000 ml @ 80 mls/hr [id number] IV Last administered on at 20:50; Start 04/18/18 at 21:00 Fentanyl Citrate (Fentanyl 2ml Vial) 50 mcg PRN Q3HRS PRN IV PAIN SEVERE Last administered on 04/20/18at 08:33; Start 04/19/18 at 19:45 Acetaminophen/ Hydrocodone Bitart (Lortab 5/325) 1 tab PRN Q4HRS PRN PO PAIN Last administered on 04/21/18at 08:53; Start 04/20/18 at 10:15 Acetaminophen/ Hydrocodone Bitart (Lortab 5/325) 2 tab PRN Q4HRS PRN PO PAIN; Start 04/20/18 at 10:15 Carbamazepine (TEGretol) 200 mg BID PO Last administered on 04/21/18at 08:52; Start 04/20/18 at 21:00 Docusate Sodium (Colace) 100 mg BID PO Last administered on 04/21/18at 08:52; Start 04/20/18 at 21:00 Paroxetine HCl (Paxil) 40 mg DAILY PO Last administered on 04/21/18at 08:52; Start 04/21/18 at 09:00 Ondansetron HCl (Zofran) 4 mg PRN Q6HRS PRN IV NAUSEA/VOMITING Last administered on 04/20/18at 20:49; Start 04/20/18 at 20:15 Active Scripts Active Reported Paxil (Paroxetine Hcl) 40 Mg Tablet 40 Mg PO HS Colace (Docusate Sodium) 100 Mg Capsule 100 Mg PO BID Tegretol (Carbamazepine) 200 Mg Tablet 200 Mg PO BID Vitals/I & O Vital Sign - Last 24 Hours 04/20/18 04/20/18 04/20/18 04/20/18 12:00 12:01 16:00 17:06 Temp 98.1 98.1 Pulse 88 90 Resp 18 18 16 B/P (MAP) 111/82 (92) 90/50 (63) Pulse Ox 97 97 O2 Delivery Room Air Room Air Room Air 04/20/18 04/20/18 04/20/18 04/20/18 19:00 20:00 20:49 21:50 Temp 98.6 98.6 Pulse 67 Resp 18 B/P (MAP) 126/83 (97) Pulse Ox 97 O2 Delivery Room Air Room Air Room Air Room Air 04/20/18 04/21/18 04/21/18 04/21/18 23:00 03:00 07:00 08:53 Temp 98.6 98.2 97.9 98.6 98.2 97.9 Pulse 70 64 62 Resp 18 18 16 16 B/P (MAP) 134/80 (98) 129/80 (96) 124/82 (96) Pulse Ox 98 97 99 99 O2 Delivery Room Air Room Air Room Air Room Air Intake and Output 04/20/18 04/20/18 04/21/18 15:00 23:00 07:00 Intake Total 600 ml 1100 ml Output Total 320 ml Balance 280 ml 1100 ml DAMARIS BAUTISTA MD Apr 21, 2018 09:11
--- NOTE | 2018-04-21 09:31 | PDOC3 ---
Discharge Summary Visit Information Date of Admission: Apr 18, 2018 Date of Discharge: Apr 21, 2018 Admitting Diagnosis: L subarachnoid hemorrhage, R subdural hematoma Final Diagnosis L subarachnoid hemorrhage, R subdural hematoma Brief Hospital Course Allergies Allergies Coded Allergies Type Severity Reaction Last Updated Verified imipramine Allergy Mild 04/19/18 Yes Vital Signs Vital Signs Date Time Temp Pulse Resp B/P (MAP) Pulse Ox O2 Delivery O2 Flow Rate FiO2 04/21/18 08:53 16 99 Room Air 04/21/18 07:00 97.9 62 124/82 (96) 97.9 Lab Results Laboratory Tests Test 04/20/18 05:10 04/21/18 06:20 White Blood Count 11.5 x10^3/uL (4.0-11.0) 8.8 x10^3/uL (4.0-11.0) Red Blood Count 3.91 x10^6/uL (4.30-5.70) 4.13 x10^6/uL (4.30-5.70) Hemoglobin 12.5 g/dL (13.0-17.5) 13.3 g/dL (13.0-17.5) Hematocrit 35.7 % (39.0-53.0) 37.6 % (39.0-53.0) Mean Corpuscular Volume 91 fL (79-100) 91 fL (79-100) Mean Corpuscular Hemoglobin 32 pg (25-35) 32 pg (25-35) Mean Corpuscular Hemoglobin Concent 35 g/dL (31-37) 36 g/dL (31-37) Red Cell Distribution Width 13.2 % (11.5-14.5) 13.3 % (11.5-14.5) Platelet Count 137 x10^3/uL (140-400) 145 x10^3/uL (140-400) Neutrophils (%) (Auto) 71 % (31-73) 59 % (31-73) Lymphocytes (%) (Auto) 22 % (24-48) 32 % (24-48) Monocytes (%) (Auto) 7 % (0-9) 9 % (0-9) Eosinophils (%) (Auto) 0 % (0-3) 1 % (0-3) Basophils (%) (Auto) 0 % (0-3) 0 % (0-3) Neutrophils # (Auto) 8.2 x10^3uL (1.8-7.7) 5.1 x10^3uL (1.8-7.7) Lymphocytes # (Auto) 2.5 x10^3/uL (1.0-4.8) 2.8 x10^3/uL (1.0-4.8) Monocytes # (Auto) 0.8 x10^3/uL (0.0-1.1) 0.8 x10^3/uL (0.0-1.1) Eosinophils # (Auto) 0.0 x10^3/uL (0.0-0.7) 0.1 x10^3/uL (0.0-0.7) Basophils # (Auto) 0.0 x10^3/uL (0.0-0.2) 0.0 x10^3/uL (0.0-0.2) Sodium Level 142 mmol/L (136-145) 144 mmol/L (136-145) Potassium Level 4.1 mmol/L (3.5-5.1) 3.7 mmol/L (3.5-5.1) Chloride Level 108 mmol/L (98-107) 109 mmol/L (98-107) Carbon Dioxide Level 25 mmol/L (21-32) 30 mmol/L (21-32) Anion Gap 9 (6-14) 5 (6-14) Blood Urea Nitrogen 8 mg/dL (8-26) 8 mg/dL (8-26) Creatinine 0.7 mg/dL (0.7-1.3) 0.8 mg/dL (0.7-1.3) Estimated GFR (Cockcroft-Gault) 126.2 108.2 Glucose Level 95 mg/dL (70-99) 98 mg/dL (70-99) Calcium Level 8.2 mg/dL (8.5-10.1) 8.2 mg/dL (8.5-10.1) Laboratory Tests Test 04/21/18 06:20 White Blood Count 8.8 x10^3/uL (4.0-11.0) Red Blood Count 4.13 x10^6/uL (4.30-5.70) Hemoglobin 13.3 g/dL (13.0-17.5) Hematocrit 37.6 % (39.0-53.0) Mean Corpuscular Volume 91 fL (79-100) Mean Corpuscular Hemoglobin 32 pg (25-35) Mean Corpuscular Hemoglobin Concent 36 g/dL (31-37) Red Cell Distribution Width 13.3 % (11.5-14.5) Platelet Count 145 x10^3/uL (140-400) Neutrophils (%) (Auto) 59 % (31-73) Lymphocytes (%) (Auto) 32 % (24-48) Monocytes (%) (Auto) 9 % (0-9) Eosinophils (%) (Auto) 1 % (0-3) Basophils (%) (Auto) 0 % (0-3) Neutrophils # (Auto) 5.1 x10^3uL (1.8-7.7) Lymphocytes # (Auto) 2.8 x10^3/uL (1.0-4.8) Monocytes # (Auto) 0.8 x10^3/uL (0.0-1.1) Eosinophils # (Auto) 0.1 x10^3/uL (0.0-0.7) Basophils # (Auto) 0.0 x10^3/uL (0.0-0.2) Sodium Level 144 mmol/L (136-145) Potassium Level 3.7 mmol/L (3.5-5.1) Chloride Level 109 mmol/L (98-107) Carbon Dioxide Level 30 mmol/L (21-32) Anion Gap 5 (6-14) Blood Urea Nitrogen 8 mg/dL (8-26) Creatinine 0.8 mg/dL (0.7-1.3) Estimated GFR (Cockcroft-Gault) 108.2 Glucose Level 98 mg/dL (70-99) Calcium Level 8.2 mg/dL (8.5-10.1) Brief Hospital Course Admitted with Mechanical fall with bilateral traumatic cerebral hemorrhages, does have History of epilepsy, did have a brief seizure on admission Parietal bone fracture was noted on CT scan head repeat, non-displaced Intellectual disability at baseline stable Leukocytosis improved Pt seen and examined in medical wards Resting sitting upright in bed. Glasses in place Discussed with instrument technician helper facility officers at bedside C/o mild headache improved with tylenol at this time from 11/27 to 2/10. No further seizure activity. Had BM overnight, ambulated with PT, was a little unsteady Mechanical fall with bilateral traumatic cerebral hemorrhages, improved History of epilepsy, did have a brief seizure on 04/19/18, therapeutic carbamazepine level on admit Ok for d/c from medicine perspective, have d/w neurology Repeat head CT at 24 hours showed: 1. Stable small right temporal extra-axial hemorrhage, 2. Decreasing with supratentorial subarachnoid hemorrhage, 3. Probable nondisplaced fracture involving the right parietal bone extending to the squamous suture Will need PT/OT in [facility] for [address] head in 2-4 weeks Discharge Information Condition at Discharge: Improved Follow Up: Weeks (2) Disposition/Orders: D/C to Another Facility, Instructions/Orders (Repeat CT head in 30 days) Scheduled Acetaminophen (Acetaminophen) 500 Mg Tablet, 1 TAB PO Q6HRS for headache, #60 Prescribed by: ADIN CASTILLO MD on 04/21/18 0932 Carbamazepine (Tegretol) 200 Mg Tablet, 200 MG PO BID for seizures, (Reported) Entered as Reported by: KRISTIAN SIMS on 04/19/1830 Last Action: Continued on 04/20/181541 by Jairon Soni Docusate Sodium (Colace) 100 Mg Capsule, 100 MG PO BID for constipation, ( Reported) Entered as Reported by: KRISTIAN SIMS on 04/19/1830 Last Action: Continued on 04/20/181541 by Jairon Soni Paroxetine Hcl (Paxil) 40 Mg Tablet, 40 MG PO HS, (Reported) Entered as Reported by: KRISTIAN SIMS on 04/19/1830 Last Action: Converted on 04/20/181541 by ADIN Coley MD Apr 21, 2018 09:31
[2018-04-21] MEDS ORDERED: ACET500T68 PO (09:32)
--- NOTE | 2018-04-21 09:36 | DISCH ---
DISCHARGE DISCHARGE INFORMATION: DISCHARGE DATE: Apr 21, 2018 CONDITION ON DISCHARGE: Stable CODE STATUS: Code Status: Full JAIL: SNF STAY <30 DAYS: No HOSPICE: HOSPICE: No HOSPICE EVAL & TREAT: No LTAC: ADMIT TO LTAC: No POST DISCHARGE ORDERS: ACTIVITY ORDERS: Resume previous activity WEIGHT BEARING STATUS: As tolerated DIET AFTER DISCHARGE: Regular WOUND/INCISION CARE: Ice to area for comfort OTHER ORDERS: Repeat CT head in 30 days - Dr. Pedroza for rslts FOLLOW-UP: ADDITIONAL FOLLOW-UP: Repeat CT head in 30 days - Dr. Pedroza for rslts TREATMENT/EQUIPMENT ORDERS: ADAPTIVE EQUIPMENT NEEDED: None Physical Therapy For: Evalulation/Treatment Occupational Therapy For: Evaluation/Treatment DISCHARGE MEDICATIONS: Home Meds Reported Medications Paroxetine Hcl (PAXIL) 40 Mg Tablet, 40 MG PO HS, TAB 04/19/18 Docusate Sodium (COLACE) 100 Mg Capsule, 100 MG PO BID for constipation, CAP 04/19/18 Carbamazepine (TEGRETOL) 200 Mg Tablet, 200 MG PO BID for seizures, TAB 04/19/18 ADIN CASTILLO MD Apr 21, 2018 09:36
[2018-04-21 11:05] VITALS: BP 117/80
--- NOTE | 2018-04-21 12:10 | PDOC ---
PROGRESS NOTES Subjective Subjective sitting up in bed eating lunch mild headache Objective Objective Vital Signs Date Time Temp Pulse Resp B/P (MAP) Pulse Ox O2 Delivery O2 Flow Rate FiO2 04/21/18 11:05 98.2 79 16 117/80 (92) 97 Room Air 98.2 04/19/18 03:00 4.0 Intake and Output 04/21/18 07:00 Intake Total 1700 ml Output Total 320 ml Balance 1380 ml Intake Oral 500 ml IV Total 1200 ml Output Urine Total 320 ml # Voids 2 # Bowel Movements 1 Physical Exam General: Alert, Oriented X3, Cooperative, No acute distress Neuro: Normal speech, Strength at 5/5 X4 ext Plan Plan of Care ok to dc will arrange f/u CT head in 7 to 10 days Comment Review of Relevant I have reviewed the following items laura (where applicable) has been applied. Labs Laboratory Tests Test 04/20/18 05:10 04/21/18 06:20 White Blood Count 11.5 x10^3/uL (4.0-11.0) 8.8 x10^3/uL (4.0-11.0) Red Blood Count 3.91 x10^6/uL (4.30-5.70) 4.13 x10^6/uL (4.30-5.70) Hemoglobin 12.5 g/dL (13.0-17.5) 13.3 g/dL (13.0-17.5) Hematocrit 35.7 % (39.0-53.0) 37.6 % (39.0-53.0) Mean Corpuscular Volume 91 fL (79-100) 91 fL (79-100) Mean Corpuscular Hemoglobin 32 pg (25-35) 32 pg (25-35) Mean Corpuscular Hemoglobin Concent 35 g/dL (31-37) 36 g/dL (31-37) Red Cell Distribution Width 13.2 % (11.5-14.5) 13.3 % (11.5-14.5) Platelet Count 137 x10^3/uL (140-400) 145 x10^3/uL (140-400) Neutrophils (%) (Auto) 71 % (31-73) 59 % (31-73) Lymphocytes (%) (Auto) 22 % (24-48) 32 % (24-48) Monocytes (%) (Auto) 7 % (0-9) 9 % (0-9) Eosinophils (%) (Auto) 0 % (0-3) 1 % (0-3) Basophils (%) (Auto) 0 % (0-3) 0 % (0-3) Neutrophils # (Auto) 8.2 x10^3uL (1.8-7.7) 5.1 x10^3uL (1.8-7.7) Lymphocytes # (Auto) 2.5 x10^3/uL (1.0-4.8) 2.8 x10^3/uL (1.0-4.8) Monocytes # (Auto) 0.8 x10^3/uL (0.0-1.1) 0.8 x10^3/uL (0.0-1.1) Eosinophils # (Auto) 0.0 x10^3/uL (0.0-0.7) 0.1 x10^3/uL (0.0-0.7) Basophils # (Auto) 0.0 x10^3/uL (0.0-0.2) 0.0 x10^3/uL (0.0-0.2) Sodium Level 142 mmol/L (136-145) 144 mmol/L (136-145) Potassium Level 4.1 mmol/L (3.5-5.1) 3.7 mmol/L (3.5-5.1) Chloride Level 108 mmol/L (98-107) 109 mmol/L (98-107) Carbon Dioxide Level 25 mmol/L (21-32) 30 mmol/L (21-32) Anion Gap 9 (6-14) 5 (6-14) Blood Urea Nitrogen 8 mg/dL (8-26) 8 mg/dL (8-26) Creatinine 0.7 mg/dL (0.7-1.3) 0.8 mg/dL (0.7-1.3) Estimated GFR (Cockcroft-Gault) 126.2 108.2 Glucose Level 95 mg/dL (70-99) 98 mg/dL (70-99) Calcium Level 8.2 mg/dL (8.5-10.1) 8.2 mg/dL (8.5-10.1) Laboratory Tests Test 04/21/18 06:20 White Blood Count 8.8 x10^3/uL (4.0-11.0) Red Blood Count 4.13 x10^6/uL (4.30-5.70) Hemoglobin 13.3 g/dL (13.0-17.5) Hematocrit 37.6 % (39.0-53.0) Mean Corpuscular Volume 91 fL (79-100) Mean Corpuscular Hemoglobin 32 pg (25-35) Mean Corpuscular Hemoglobin Concent 36 g/dL (31-37) Red Cell Distribution Width 13.3 % (11.5-14.5) Platelet Count 145 x10^3/uL (140-400) Neutrophils (%) (Auto) 59 % (31-73) Lymphocytes (%) (Auto) 32 % (24-48) Monocytes (%) (Auto) 9 % (0-9) Eosinophils (%) (Auto) 1 % (0-3) Basophils (%) (Auto) 0 % (0-3) Neutrophils # (Auto) 5.1 x10^3uL (1.8-7.7) Lymphocytes # (Auto) 2.8 x10^3/uL (1.0-4.8) Monocytes # (Auto) 0.8 x10^3/uL (0.0-1.1) Eosinophils # (Auto) 0.1 x10^3/uL (0.0-0.7) Basophils # (Auto) 0.0 x10^3/uL (0.0-0.2) Sodium Level 144 mmol/L (136-145) Potassium Level 3.7 mmol/L (3.5-5.1) Chloride Level 109 mmol/L (98-107) Carbon Dioxide Level 30 mmol/L (21-32) Anion Gap 5 (6-14) Blood Urea Nitrogen 8 mg/dL (8-26) Creatinine 0.8 mg/dL (0.7-1.3) Estimated GFR (Cockcroft-Gault) 108.2 Glucose Level 98 mg/dL (70-99) Calcium Level 8.2 mg/dL (8.5-10.1) Medications Current Medications Ringer's Solution 1,000 ml @ 75 mls/hr 1X ONCE IV Last administered on at 16:43; Start 04/18/18 at 16:15; Stop 04/19/18 at 05:34; Status DC Levetiracetam 1000 mg/Dextrose 110 ml @ 440 mls/hr 1X ONCE IV Last administered on 04/18/18at 16:43; Start 04/18/18 at 16:15; Stop 04/18/18 at 16 :29; Status DC Ondansetron HCl (Zofran) 8 mg 1X ONCE IM ; Start 04/18/18 at 16:15; Stop at 16:16; Status DC Ondansetron HCl (Zofran) 4 mg PRN Q8HRS PRN IV NAUSEA/VOMITING; Start at 16:15; Stop 04/18/18 at 19:11; Status DC Fentanyl Citrate (Fentanyl 2ml Vial) 50 mcg PRN Q1HR PRN IV PAIN Last administered on 04/19/18at 08:33; Start 04/18/18 at 16:15; Stop 04/19/18 at 16 :14; Status DC Ondansetron HCl (Zofran) 8 mg 1X ONCE IV Last administered on 04/18/18at 16:00 ; Start 04/18/18 at 16:30; Stop 04/18/18 at 16:31; Status DC Levetiracetam 500 mg/Dextrose 105 ml @ 420 mls/hr Q12HR IV Last administered on 04/20/18at 08:36; Start 04/18/18 at 19:00; Stop 04/20/18 at 15:43; Status DC Prochlorperazine Edisylate (Compazine) 5 mg PRN Q4HRS PRN IV NAUSEA/VOMITING Last administered on 04/20/18at 11:58; Start 04/18/18 at 19:15; Stop 04/21/18 at 09:27; Status DC Sodium Chloride 1,000 ml @ 80 mls/hr [id number] IV Last administered on at 20:50; Start 04/18/18 at 21:00; Stop 04/21/18 at 09:27; Status DC Fentanyl Citrate (Fentanyl 2ml Vial) 50 mcg PRN Q3HRS PRN IV PAIN SEVERE Last administered on 04/20/18at 08:33; Start 04/19/18 at 19:45; Stop 04/21/18 at 09: 27; Status DC Acetaminophen/ Hydrocodone Bitart (Lortab 5/325) 1 tab PRN Q4HRS PRN PO PAIN Last administered on 04/21/18at 08:53; Start 04/20/18 at 10:15; Stop 04/21/18 at 09:27; Status DC Acetaminophen/ Hydrocodone Bitart (Lortab 5/325) 2 tab PRN Q4HRS PRN PO PAIN; Start 04/20/18 at 10:15; Stop 04/21/18 at 09:27; Status DC Carbamazepine (TEGretol) 200 mg BID PO Last administered on 04/21/18at 08:52; Start 04/20/18 at 21:00 Docusate Sodium (Colace) 100 mg BID PO Last administered on 04/21/18at 08:52; Start 04/20/18 at 21:00 Paroxetine HCl (Paxil) 40 mg DAILY PO Last administered on 04/21/18at 08:52; Start 04/21/18 at 09:00 Ondansetron HCl (Zofran) 4 mg PRN Q6HRS PRN IV NAUSEA/VOMITING Last administered on 04/20/18at 20:49; Start 04/20/18 at 20:15; Stop 04/21/18 at 09:27 ; Status DC Active Scripts Active Acetaminophen 500 Mg Tablet 1 Tab PO Q6HRS Reported Paxil (Paroxetine Hcl) 40 Mg Tablet 40 Mg PO HS Colace (Docusate Sodium) 100 Mg Capsule 100 Mg PO BID Tegretol (Carbamazepine) 200 Mg Tablet 200 Mg PO BID Vitals/I & O Vital Sign - Last 24 Hours 04/20/18 04/20/18 04/20/18 04/20/18 16:00 17:06 19:00 20:00 Temp 98.6 98.6 Pulse 90 67 Resp 18 16 18 B/P (MAP) 90/50 (63) 126/83 (97) Pulse Ox 97 97 O2 Delivery Room Air Room Air Room Air Room Air 04/20/18 04/20/18 04/20/18 04/21/18 20:49 21:50 23:00 03:00 Temp 98.6 98.2 98.6 98.2 Pulse 70 64 Resp 18 18 B/P (MAP) 134/80 (98) 129/80 (96) Pulse Ox 98 97 O2 Delivery Room Air Room Air Room Air Room Air 04/21/18 04/21/18 04/21/18 04/21/18 07:00 07:35 08:53 11:05 Temp 97.9 98.2 97.9 98.2 Pulse 62 79 Resp 16 16 16 B/P (MAP) 124/82 (96) 117/80 (92) Pulse Ox 99 99 97 O2 Delivery Room Air Room Air Room Air Room Air Intake and Output 04/20/18 04/20/18 04/21/18 15:00 23:00 07:00 Intake Total 600 ml 1100 ml Output Total 320 ml Balance 280 ml 1100 ml TABATHA WING CALL OUT CLERK Apr 21, 2018 12:10
== END 2018-04-21 15:10 | DRG 82 ==
LOC: EEVIPCON 14:47 → ER 14:47 → 1 WEST ICU 16:00 → 4 NORTH 04-20 18:37
PROVIDERS: ADMIT Family Medicine; ATTEND Family Medicine
DX: S06.5X9A Traumatic subdural hemorrhage with loss of consciousness of unspecified duration, initial encounter (principal); G93.41 Metabolic encephalopathy; S06.6X9A Traumatic subarachnoid hemorrhage with loss of consciousness of unspecified duration, initial encounter; S02.0XXA Fracture of vault of skull, initial encounter for closed fracture; G40.909 Epilepsy, unspecified, not intractable, without status epilepticus; F79 Unspecified intellectual disabilities; F03.90 Unspecified dementia, unspecified severity, without behavioral disturbance, psychotic disturbance, mood disturbance, and anxiety; D72.829 Elevated white blood cell count, unspecified; F60.9 Personality disorder, unspecified; F43.10 Post-traumatic stress disorder, unspecified; W18.39XA Other fall on same level, initial encounter; Y93.89 Activity, other specified; Y92.89 Other specified places as the place of occurrence of the external cause; Y99.8 Other external cause status; Z87.891 Personal history of nicotine dependence
CPT/HCPCS: 36415; 51701; 70450; 72125; 80048; 80156; 80185; 80307; 81001; 85025; 85610; 85730; 87641; 96365; 96375; G0480; J0780; J1953; J2405; J3010; J7030; J7120; 99285-25; G0479

== ENCOUNTER → 2018-05-09 | Outpatient (CLI) | payer OTHER ==
[2018-04-21 11:05] VITALS: BP 117/80
[~2018-05-09] MED LIST: ACET500T68 PO; CARB200T PO; DOCU-109 PO; PARO40TA61 PO
--- NOTE | 2018-05-09 13:29 | RAD ---
CT HEAD WO CONTRAST History: Subarachnoid hemorrhage follow-up Comparison: 04/19/2018 Technique: Noncontrast CT imaging was performed of the head. Exposure: One or more of the following individualized dose reduction techniques were utilized for this examination: 1. Automated exposure control 2. Adjustment of the mA and/or kV according to patient size 3. Use of iterative reconstruction technique. Findings: There is no significant residual subarachnoid hemorrhage. Previously suggested subdural hematoma of the right temporal region is not clearly identified on this exam allowing for artifact. There is no new intra-axial mass effect, midline shift, extra-axial fluid collection, acute intracranial hemorrhage. Ventricular size is within normal limits. Sanchez-white differentiation of the major vascular territories is preserved. Visualized paranasal sinuses and the mastoid air cells are aerated. Impression: 1. There is no significant residual subarachnoid hemorrhage, no acute intracranial abnormality identified. Electronically signed by: Rafa Medina MD (05/09/2018 1:26 PM) [email or web address]
== END | disposition home or self-care (01) ==
LOC: CT 09:46 → EEVIPCON 10:30
DX: S06.6X0D Traumatic subarachnoid hemorrhage without loss of consciousness, subsequent encounter (principal); X58.XXXD Exposure to other specified factors, subsequent encounter
CPT/HCPCS: 70450